=== PATIENT | male | born 1990 | race African-American/Black ===

== ENCOUNTER 2017-11-17 01:29 | Inpatient (IN) | payer OTHER ==
[2017-11-17] VITALS (22 sets, daily range): BP systolic 100–123; BP diastolic 61–74; PULSE 85–115; RESP 11–164; TEMP 96.3–98.4; O2SAT 97–100
[~2017-11-17] VITALS: Ht 170.2 cm; Wt 69.7 kg
--- NOTE | 2017-11-17 01:53 | PD ---
HPI Chief Complaint: Bite or Sting Time Seen by Provider: 01:39 Travel History International Travel<30 days: No Contact w/Intl Traveler<30days: No Traveled to known affect area: No History of Present Illness HPI 27-year-old black male presents in police custody for medical clearance to go to shelter. Patient was apprehended by police canine. Patient states that he has not had a tetanus shot in over 5 years. Pain is mild to moderate. Patient sustained a bite to the left forearm. No other injuries. She denies any injury to his head, neck or back. No chest or abdominal pain. He denies any numbness or tingling. PFSH Past Medical History Medical History: Denies Significant Hx Diminished Hearing: No Immunizations Current: No Tetanus Vaccination: > 5 Years Past Surgical History Surgical History: No Previous Surgery Social History Alcohol Use: Yes Tobacco Use: Yes Substance Use: No (PT DENIES ) Allergies-Medications (Allergen,Severity, Reaction): Coded Allergies: No Known Allergies (Unverified , 11/17/17) Reported Meds & Prescriptions Reported Meds & Active Scripts Active Ibuprofen 600 Mg Tab 600 Mg PO Q6H PRN Augmentin (Amoxicillin-Clavulanate) 875-125 Mg Tab 1 Tab PO BID 10 Days Review of Systems General / Constitutional: No: Fever Eyes: No: Visual changes HENT: No: Headaches, Neck Stiffness, Neck Pain Cardiovascular: No: Chest Pain or Discomfort Respiratory: No: Shortness of Breath Gastrointestinal: No: Abdominal Pain Genitourinary: No: Dysuria Musculoskeletal: Positive: Myalgias, Arthralgias, Limited ROM, Edema, Pain, No : Weakness Skin: No Rash Neurologic: No: Weakness Endocrine: No: Polydipsia Physical Exam Narrative GENERAL: Well-developed, well-nourished in no apparent distress. Nontoxic appearing. HEAD: Normocephalic, atraumatic. EYES: Pupils equal round and reactive. Extraocular motions intact. No scleral icterus. No injection or drainage. ENT: Nose clear. Throat without erythema, tonsillar hypertrophy or exudate. Uvula midline. Airway patent. NECK: Trachea midline. Supple, nontender, moves head freely. No central bony tenderness or spasm. CARDIOVASCULAR: Regular rate and rhythm without murmurs, gallops, or rubs. RESPIRATORY: Clear to auscultation. Breath sounds equal bilaterally. No wheezes , rales, or rhonchi. GASTROINTESTINAL: Abdomen soft, non-tender, nondistended. No hepato-splenomegaly , or palpable masses. No guarding. EXTREMITIES: Examination of the left upper extremity reveals multiple tooth punctures and a bite pattern to the proximal volar and dorsal forearm. There are no suturable lacerations. Patient does have surrounding edema and tenderness to the area of the bite. These do not appear to go into any deep vascular structures. They do not appear to involve any joint or bone. There is no pain in the humerus, elbow, wrist, hand. He has intact median/ulnar/ radial nerves. Patient has no localizing bony tenderness or deformity to the right upper extremity as well as the lower extremities. There are neurovascularly intact. BACK: Nontender without deformity. No flank tenderness. NEUROLOGICAL: Awake, alert and oriented x 3 .Cranial nerves grossly intact. Motor and sensory grossly within normal limits. Normal speech. Data Data Last Documented VS Vital Signs Date Time Temp Pulse Resp B/P (MAP) Pulse Ox O2 Delivery O2 Flow Rate FiO2 11/17/17 01:36 97.8 108 16 123/71 (88) 98 Orders Orders Forearm (2vws) (11/17/17 01:47) Ice/Cold Pack (11/17/17 01:47) Ibuprofen (Motrin) (11/17/17 02:00) Amoxicil-Clavulanate (Augmentin) (11/17/17 02:00) Tetanus/Diphtheria Tox Adult (Tetanus/Di (11/17/17 02:00) Electrocardiogram (11/17/17 02:26) Complete Blood Count With Diff (11/17/17 02:26) Comprehensive Metabolic Panel (11/17/17 02:26) Cath For Specimen (11/17/17 02:26) Chest, Single Ap (11/17/17 02:26) Iv Access Insert/Monitor (11/17/17 02:26) Ecg Monitoring (11/17/17 02:26) Drug Screen, Random Urine (11/17/17 02:26) Alcohol (Ethanol) (11/17/17 02:26) Salicylates (Aspirin) (11/17/17 02:26) Tylenol (Acetaminophen) (11/17/17 02:26) Ct Brain W/O Iv Contrast(Rout) (11/17/17 02:38) [facility] Medical Decision Making Medical Screen Exam Complete: Yes Emergency Medical Condition: Yes Medical Record Reviewed: Yes Interpretation(s) Left forearm: Negative for fracture. No foreign body. Positive soft tissue swelling. Differential Diagnosis MDM: High Differential diagnoses: Fracture, sprain, strain, dislocation, contusion, neurovascular injury, dog bite Narrative Course Patient is given tetanus immunization, Motrin 600 mg p.o., Augmentin 875 mg p.o. X-ray of the left forearm is negative for acute bony injury. Patient's wound is copiously cleansed and irrigated in a sterile dressings applied by the nursing staff. The patient's been medically cleared to go to shelter. This is dog bite left forearm, medical clearance to go to shelter. As the patient was getting ready to be discharged to PD he allegedly had a possible seizure. The patient allegedly became stiff and unresponsive. I have evaluated the patient. He does respond to noxious stimuli. It is unclear whether this is a true seizure that he may have had or a pseudoseizure. The officers that are with the patient are concerned that the patient is not going to be accepted by the shelter. I also concur. We will do more of an evaluation including CBC, chemistry, tox screen and monitoring. The patient is transferred to the medical pod echo 55 for further evaluation and treatment by the ER physician. Report has been given to Dr Holcomb Diagnosis Primary Impression: Dog bite left forearm Patient Instructions: General Instructions Med/Other Pt SpecificInfo: Prescription(s) given Scripts Ibuprofen (Ibuprofen) 600 Mg Tab 600 MG PO Q6H Y for Pain/Inflammation, #40 TAB 0 Refills Prov: Mckenna Dempsey MD 11/17/17 Amoxicillin-Clavulanate (Augmentin) 875-125 Mg Tab 1 TAB PO BID for Infection for 10 Days, #20 TAB 0 Refills Prov: Mckenna Dempsey MD 11/17/17 Condition: Stable Shawn Goff Nov 17, 2017 01:53
[2017-11-17] MEDS ORDERED: AUGM875T3 PO (01:54)
[2017-11-17] MEDS ORDERED: IBUP-232 PO (01:54)
[2017-11-17] MEDS ORDERED: AMOXICILLIN/CLAVULANATE K 875 MG TAB PO ONE (02:00)
[2017-11-17] MEDS ORDERED: IBUPROFEN 600 MG TAB PO ONE (02:00)
[2017-11-17] MEDS ORDERED: TETANUS/DIPHTHERIA TOXOID ADULT 0.5 ML VIAL IM ONE (02:00)
--- NOTE | 2017-11-17 02:41 | RADRPT ---
EXAM DATE: 11/17/2017 2:10 AM EDT AGE/SEX: 27 years / Male INDICATIONS: Dog bite to proximal left forearm today CLINICAL DATA: This is the patient's initial encounter. Patient reports that signs and symptoms have been present for 1 day and indicates a pain score of 9/10. MEDICAL/SURGICAL HISTORY: None. None. COMPARISON: No prior [place] exams available for comparison. FINDINGS: There is air seen in the soft tissues around the elbow. There is soft tissue swelling. No radiopaque foreign bodies seen. The bony structures are intact. CONCLUSION: Soft tissue swelling with air in the soft tissues around the elbow and proximal forearm. Electronically signed by: Rodney Tobar MD 11/17/2017 2:39 AM EDT
[2017-11-17] MEDS ORDERED: LORazepam 2 MG/ML VIAL IV PUSH ONE (03:00)
--- NOTE | 2017-11-17 03:09 | RADRPT ---
EXAM DATE: 11/17/2017 2:50 AM EDT AGE/SEX: 27 years / Male INDICATIONS: Trauma due to police ricardo & police canine attack. Medical clearance. CLINICAL DATA: This is the patient's initial encounter. Patient reports that signs and symptoms have been present for 1 day and indicates a pain score of Nonresponsive. MEDICAL/SURGICAL HISTORY: Non-responsive. Non-responsive. COMPARISON: No prior [place] exams available for comparison. FINDINGS: There is dislocation at the left shoulder with the humeral head being displaced anteriorly and medial ly. The heart size is normal. The lungs are clear. CONCLUSION: Left glenohumeral dislocation. Electronically signed by: Rodney Tobar MD 11/17/2017 3:07 AM EDT
[2017-11-17 03:13] LABS: AUTOMATED NEUTROPHIL # 7.7 TH/MM3 (1.8-7.7); BASOPHIL % 0.4 % (0.0-2.0); EOSINOPHIL # 0.1 TH/MM3 (0-0.4); EOSINOPHIL % 0.7 % (0.0-4.0); HEMATOCRIT 45.5 % (39.0-51.0); HEMOGLOBIN 15.4 GM/DL (13.0-17.0); LYMPH % 19.7 % (9.0-44.0); LYMPHOCYTE # 2.2 TH/MM3 (1.0-4.8); MEAN CELL VOLUME 90.8 FL (80.0-100.0); MEAN CORPUSCULAR HEMOGLOBIN 30.8 PG (27.0-34.0); MEAN PLATELET VOLUME 9.4 FL (7.0-11.0); MONO % 10.8 % (0.0-8.0); MONOCYTE # 1.2 TH/MM3 (0-0.9); NEUT % 68.4 % (16.0-70.0); PLATELET COUNT 205 TH/MM3 (150-450); RED BLOOD COUNT 5.01 MIL/MM3 (4.50-5.90); RED CELL DISTRIBUTION WIDTH 13.9 % (11.6-17.2); WHITE BLOOD COUNT 11.3 TH/MM3 (4.0-11.0)
[2017-11-17 03:38] LABS: ALKALINE PHOSPHATASE 87 U/L (45-117); TOTAL BILIRUBIN ADULT 0.4 MG/DL (0.2-1.0); TOTAL PROTEIN 8.6 GM/DL (6.4-8.2)
[2017-11-17 03:39] LABS: ALBUMIN 4.1 GM/DL (3.4-5.0); ALT (GPT) 27 U/L (12-78); AST (GOT) 35 U/L (15-37); BICARBONATE 12.5 MEQ/L (21.0-32.0); BLOOD UREA NITROGEN 11 MG/DL (7-18); CALCIUM 9.1 MG/DL (8.5-10.1); CHLORIDE 102 MEQ/L (98-107); CREATININE 1.28 MG/DL (0.60-1.30); GLOMERULAR FILTRATION RATE 82 ML/MIN (>89); GLUCOSE,RANDOM 67 MG/DL (74-106); SODIUM (NA) 141 MEQ/L (136-145)
[2017-11-17 03:46] LABS: ACETAMINOPHEN LESS THAN 2.0 MCG/ML (10.0-30.0)
--- NOTE | 2017-11-17 04:25 | RADRPT ---
EXAM DATE: 11/17/2017 4:15 AM EDT AGE/SEX: 27 years / Male INDICATIONS: Altered mental status. CLINICAL DATA: This is the patient's initial encounter. Patient reports that signs and symptoms have been present for 1 day and indicates a pain score of 0/10. MEDICAL/SURGICAL HISTORY: . . RADIATION DOSE: 66.34 CTDI (mGy) COMPARISON: No prior [place] exams available for comparison. TECHNIQUE: CT of the head without contrast. Using automated exposure control and adjustment of the mA and/or kV according to patient size, radiation dose was kept as low as reasonably achievable to ob tain optimal diagnostic quality images. FINDINGS: Cerebrum: The ventricles are normal for age. No evidence of midline shift, mass lesion, hemorrhage or acute infarction. No extraaxial fluid collections are seen. Posterior Fossa: The cerebellum and brainstem are intact. The 4th ventricle is midline. The cerebe llopontine angle is unremarkable. Extracranial: The visualized portion of the orbits is intact. Skull: The calvaria is intact. No evidence of skull fracture. CONCLUSION: Negative noncontrast head CT. Electronically signed by: Rodney Tobar MD 11/17/2017 4:24 AM EDT
[2017-11-17] MEDS ORDERED: DEXTROSE 50% IN WATER 50 ML SYRINGE ONE (04:55)
[2017-11-17] MEDS ORDERED: PROMETHAZINE INJ 25 MG/ML VIAL IM ONE (05:00)
[2017-11-17] MEDS ORDERED: DEXTROSE 50% IN WATER 50 ML VIAL(D50) IV PUSH ONE (05:00)
[2017-11-17] MEDS ORDERED: SODIUM CHLORIDE 0.9% FLUSH 10 ML FLUSH IV FLUSH PRN (05:00)
[2017-11-17] MEDS ORDERED: LORazepam 2 MG/ML VIAL IV PUSH PRN (05:00)
[2017-11-17] MEDS ORDERED: PHENYTOIN INJ 1,000 MG in SODIUM CHLORIDE 0.9% INJ 100 ML IV ONE (05:00)
[2017-11-17] MEDS ORDERED: ONDANSETRON ODT 4 MG TAB PO PRN (05:15)
--- NOTE | 2017-11-17 05:28 | PD ---
Physical Exam Date Seen by Provider: Nov 17, 2017 Time Seen by Provider: 16:00 Narrative Patient initially seen by PA, please see PA notes for further details. He apparently was involved in a car ricardo with police department, was stopped and rested, and was bitten by police dog in the left arm, and was evaluated by our PA, but as he was leaving, had what appears to be a seizure episode. He was brought to the medical area of the ER to be evaluated further for seizure, had a second seizure here witnessed by me. He did not have urinary incontinence but had a post ictal period, and was given Ativan in the ER. CT the brain is negative for any signs of acute intracranial injuries. While being observed, he became quite diaphoretic and heart rate was in the 130s, blood sugar was checked and it was 60 and D50 was given in the ER. In addition, an x-ray of the chest shows an incidental left shoulder dislocation. Shoulder was reduced by me in the ER. Patient barely made any movements while I was reducing his shoulder. X-ray shows successful reduction post procedure. Patient was observed to be more disoriented in the ER and at this point, there is suspicion that there is a possibility that the patient may have tried to ingest drugs while he was running away from the PD in order to hide them, and considering the tachycardia and symptoms, plan would be to admit him for closer treatment and observation in the ICU. Case is discussed with Dr. Miguel for admission. GENERAL: Well-developed young -[place] male patient currently in moderate distress, lethargic and disoriented. SKIN: Focused skin assessment warm/dry. HEAD: Atraumatic. Normocephalic. EYES: Pupils equal and round. No scleral icterus. No injection or drainage. ENT: No nasal bleeding or discharge. Mucous membranes pink and moist. NECK: Trachea midline. No JVD. CARDIOVASCULAR: Regular rate and rhythm. No murmur appreciated. RESPIRATORY: No accessory muscle use. Clear to auscultation. Breath sounds equal bilaterally. GASTROINTESTINAL: Abdomen soft, non-tender, nondistended. Hepatic and splenic margins not palpable. MUSCULOSKELETAL: No obvious deformities. No clubbing. No cyanosis. No edema. Left palpable humeral head anterior to the shoulder joint. Decreased range of motion of the left shoulder. NEUROLOGICAL: Lethargic. Not following commands. PSYCHIATRIC: Disoriented; insight and judgment poor. EKG shows sinus tachycardia at a rate 115 bpm with no signs of acute ST elevations or depressions. Laboratory Tests Test 11/17/17 02:50 11/17/17 03:04 White Blood Count 11.3 TH/MM3 (4.0-11.0) Monocytes (%) (Auto) 10.8 % (0.0-8.0) Monocytes # (Auto) 1.2 TH/MM3 (0-0.9) Random Glucose 67 MG/DL (74-106) Total Protein 8.6 GM/DL (6.4-8.2) Carbon Dioxide Level 12.5 MEQ/L (21.0-32.0) Anion Gap 27 MEQ/L (5-15) Estimat Glomerular Filtration Rate 82 ML/MIN (>89) Acetaminophen Level LESS THAN 2.0 MCG/ML Ethyl Alcohol Level 6 MG/DL (0-5) Urine Cannabinoids Screen POS (NEG) Last [address] 11/17/17237 Signed Impressions: CONCLUSION: Negative noncontrast head CT. Chest X-Ray 11/17/17 0226 Signed Impressions: CONCLUSION: Left glenohumeral dislocation. Radius/Ulna X-Ray 11/17/17 0147 Signed Impressions: CONCLUSION: Soft tissue swelling with air in the soft tissues around the elbow and proximal forearm. Data Data Last Documented VS Vital Signs Date Time Temp Pulse Resp B/P (MAP) Pulse Ox O2 Delivery O2 Flow Rate FiO2 11/17/17 04:49 115 16 121/72 (88) 99 Nasal Cannula 2.00 11/17/17 01:36 97.8 Orders Orders Forearm (2vws) (11/17/17 01:47) Ice/Cold Pack (11/17/17 01:47) Ibuprofen (Motrin) (11/17/17 02:00) Amoxicil-Clavulanate (Augmentin) (11/17/17 02:00) Tetanus/Diphtheria Tox Adult (Tetanus/Di (11/17/17 02:00) Electrocardiogram (11/17/17 02:26) Complete Blood Count With Diff (11/17/17 02:26) Comprehensive Metabolic Panel (11/17/17 02:26) Cath For Specimen (11/17/17 02:26) Chest, Single Ap (11/17/17 02:26) Iv Access Insert/Monitor (11/17/17 02:26) Ecg Monitoring (11/17/17 02:26) Drug Screen, Random Urine (11/17/17 02:26) Alcohol (Ethanol) (11/17/17 02:26) Salicylates (Aspirin) (11/17/17 02:26) Tylenol (Acetaminophen) (11/17/17 02:26) Ct Brain W/O Iv Contrast(Rout) (11/17/17 02:38) Lorazepam Inj (Ativan Inj) (11/17/17 03:00) Promethazine Inj (Phenergan Inj) (11/17/17 05:00) Dextrose 50% In [place] (Syr) Inj (D50w (Syr (11/17/17 04:55) Amoxicil-Clavulanate (Augmentin) (11/17/17 06:00) Admit To Inpatient (11/17/17 ) Vital Signs (Adult) Q4H (11/17/17 04:52) Activity Bed Rest (11/17/17 ) Neuro Checks Q4H (11/17/17 04:52) ^ Seizure Precautions (11/17/17 ) Diet Regular Basic (11/17/17 Breakfast) Sodium Chloride 0.9% Flush (Ns Flush) (11/17/17 05:00) Sodium Chloride 0.9% Flush (Ns Flush) (11/17/17 09:00) Lorazepam Inj (Ativan Inj) (11/17/17 05:00) Phenytoin Inj (Dilantin Inj) (11/17/17 05:00) Complete Blood Count With Diff (11/18/17 06:00) Basic Metabolic Panel (Bmp) (11/18/17 06:00) Eeg Study (11/17/17 ) Consult Neurology (11/17/17 ) Inpatient Certification (11/17/17 ) Admit Order (Ed Use Only) (11/17/17 04:51) Dextrose 50% In [place] (Vial) Inj (D50w (Vi (11/17/17 05:00) Ondansetron Odt (Zofran Odt) (11/17/17 05:15) Shoulder, One View (11/17/17 04:51) Labs Laboratory Tests Test 11/17/17 02:50 11/17/17 03:04 White Blood Count 11.3 TH/MM3 Red Blood Count 5.01 MIL/MM3 Hemoglobin 15.4 GM/DL Hematocrit 45.5 % Mean Corpuscular Volume 90.8 FL Mean Corpuscular Hemoglobin 30.8 PG Mean Corpuscular Hemoglobin Concent 34.0 % Red Cell Distribution Width 13.9 % Platelet Count 205 TH/MM3 Mean Platelet Volume 9.4 FL Neutrophils (%) (Auto) 68.4 % Lymphocytes (%) (Auto) 19.7 % Monocytes (%) (Auto) 10.8 % Eosinophils (%) (Auto) 0.7 % Basophils (%) (Auto) 0.4 % Neutrophils # (Auto) 7.7 TH/MM3 Lymphocytes # (Auto) 2.2 TH/MM3 Monocytes # (Auto) 1.2 TH/MM3 Eosinophils # (Auto) 0.1 TH/MM3 Basophils # (Auto) 0.0 TH/MM3 CBC Comment DIFF FINAL Differential Comment Blood Urea Nitrogen 11 MG/DL Creatinine 1.28 MG/DL Random Glucose 67 MG/DL Total Protein 8.6 GM/DL Albumin 4.1 GM/DL Calcium Level 9.1 MG/DL Alkaline Phosphatase 87 U/L Aspartate Amino Transf (AST/SGOT) 35 U/L Alanine Aminotransferase (ALT/SGPT) 27 U/L Total Bilirubin 0.4 MG/DL Sodium Level 141 MEQ/L Potassium Level 3.9 MEQ/L Chloride Level 102 MEQ/L Carbon Dioxide Level 12.5 MEQ/L Anion Gap 27 MEQ/L Estimat Glomerular Filtration Rate 82 ML/MIN Salicylates Level 5.2 MG/DL Acetaminophen Level LESS THAN 2.0 MCG/ML Ethyl Alcohol Level 6 MG/DL Urine Opiates Screen NEG Urine Barbiturates Screen NEG Urine Amphetamines Screen NEG Urine Benzodiazepines Screen NEG Urine Cocaine Screen NEG Urine Cannabinoids Screen POS MDM Medical Record Reviewed: Yes Supervised Visit with LEXUS: Yes Critical Care Narrative Aggregate critical care time was 30 minutes. Time to perform other separately billable procedures was not included in the critical care time. My time did not include minutes spent treating any other patients simultaneously or on activities that did not directly contribute to the patient's treatment. The services I provided to this patient were to treat and/or prevent clinically significant deterioration that could result in: ICH, status epilepticus, I provided critical care services requiring my management, as noted below: Chart data review, documentation time, medication orders and management, vital sign assessments/reviewing monitor data, ordering and reviewing lab tests, ordering and interpreting/reviewing x-rays and diagnostic studies, care of the patient and discussion of the patient with the admitting physicians. Procedures Procedure Narrative Left shoulder reduction: Left shoulder was reduced using the scapular manipulation and exterior rotation method. It went in easily without issues. X -ray shows reduction. Diagnosis Primary Impression: Dog bite left forearm Additional Impressions: Dislocation of left shoulder joint New onset seizure Hypoglycemia Patient Instructions: General Instructions Departure Forms: Tests/Procedures Scripts Ibuprofen (Ibuprofen) 600 Mg Tab 600 MG PO Q6H Y for Pain/Inflammation, #40 TAB 0 Refills Prov: Mckenna Dempsey MD 11/17/17 Amoxicillin-Clavulanate (Augmentin) 875-125 Mg Tab 1 TAB PO BID for Infection for 10 Days, #20 TAB 0 Refills Prov: Mckenna Dempsey MD 11/17/17 Bhavani Acosta MD Nov 17, 2017 05:28
--- NOTE | 2017-11-17 05:42 | HHI.HP ---
HPI Service Critical Care Medicine Primary Care Physician No Primary Care Physician Admission Diagnosis New onset seizures/left shoulder dislocation Diagnosis: Travel History International Travel<30 Days: No Contact w/Intl Traveler <30 Da: No Traveled to Known Affected Are: No History of Present Illness 27-year-old male presents in police custody for medical clearance to go to residential. Patient was apprehended by police canine. Patient states that he has not had a tetanus shot in over 5 years. Pain is mild to moderate. Patient sustained a bite to the left forearm. No other injuries. In the emergency department he denied any injury to his head, neck or back. No chest or abdominal pain. While in the ED he suffered episode that looked like a seizure , after which he remains obtunded. Review of Systems ROS Unable to obtain patient's obtunded Past Family Social History Allergies: Coded Allergies: No Known Allergies (Unverified , 11/17/17) Past Medical History Unobtainable Past Surgical History Unobtainable Reported Medications Reported Meds & Active Scripts Active Ibuprofen 600 Mg Tab 600 Mg PO Q6H PRN Augmentin (Amoxicillin-Clavulanate) 875-125 Mg Tab 1 Tab PO BID 10 Days Active Ordered Medications Current Medications Medications (Trade) Dose Ordered Sig/Reggie Route PRN Reason Start Time Stop Time Status Last Admin Dose Admin Amoxicillin/ Clavulanate Potassium (Augmentin) 250 mg Q8HR PO 11/17/17 06:00 Sodium Chloride (NS Flush) 2 ml UNSCH PRN IV FLUSH FLUSH AFTER USING IV ACCESS 11/17/17 05:00 Sodium Chloride (NS Flush) 2 ml BID IV FLUSH 11/17/17 09:00 Lorazepam (Ativan Inj) 2 mg UNSCH PRN IV PUSH SEE LABEL COMMENTS 11/17/17 05:00 Ondansetron HCl (Zofran Odt) 4 mg Q6H PRN PO NAUSEA OR VOMITING 11/17/17 05:15 Levetriacetam 100 ml @ 400 mls/hr BOLUS ONCE IV 11/17/17 05:45 11/17/17 05:59 Family History Unobtainable Social History Unobtainable, drug screen positive only for marijuana Physical Exam Vital Signs Vital Signs Date Time Temp Pulse Resp B/P (MAP) Pulse Ox O2 Delivery O2 Flow Rate FiO2 11/17/17 04:49 115 16 121/72 (88) 99 Nasal Cannula 2.00 11/17/17 01:36 97.8 108 16 123/71 (88) 98 Physical Exam GENERAL: Well-nourished, well-developed patient. SKIN: Warm and dry. HEAD: Normocephalic. EYES: No scleral icterus. No injection or drainage. Obtunded, lethargic NECK: Supple, trachea midline. No JVD or lymphadenopathy. CARDIOVASCULAR: Regular rate and rhythm without murmurs, gallops, or rubs. RESPIRATORY: Breath sounds equal bilaterally. No accessory muscle use. GASTROINTESTINAL: Abdomen soft, non-tender, nondistended. MUSCULOSKELETAL: No cyanosis, or edema. BACK: Nontender without obvious deformity. NEURO EXAM: GCS: 8 Mental Status: The patient is extremely obtunded, not following commands, spontaneously moving all 4 extremities. Laboratory Laboratory Tests Test 11/17/17 02:50 11/17/17 03:04 White Blood Count 11.3 Red Blood Count 5.01 Hemoglobin 15.4 Hematocrit 45.5 Mean Corpuscular Volume 90.8 Mean Corpuscular Hemoglobin 30.8 Mean Corpuscular Hemoglobin Concent 34.0 Red Cell Distribution Width 13.9 Platelet Count 205 Mean Platelet Volume 9.4 Neutrophils (%) (Auto) 68.4 Lymphocytes (%) (Auto) 19.7 Monocytes (%) (Auto) 10.8 Eosinophils (%) (Auto) 0.7 Basophils (%) (Auto) 0.4 Neutrophils # (Auto) 7.7 Lymphocytes # (Auto) 2.2 Monocytes # (Auto) 1.2 Eosinophils # (Auto) 0.1 Basophils # (Auto) 0.0 CBC Comment DIFF FINAL Differential Comment Blood Urea Nitrogen 11 Creatinine 1.28 Random Glucose 67 Total Protein 8.6 Albumin 4.1 Calcium Level 9.1 Alkaline Phosphatase 87 Aspartate Amino Transf (AST/SGOT) 35 Alanine Aminotransferase (ALT/SGPT) 27 Total Bilirubin 0.4 Sodium Level 141 Potassium Level 3.9 Chloride Level 102 Carbon Dioxide Level 12.5 Anion Gap 27 Estimat Glomerular Filtration Rate 82 Salicylates Level 5.2 Acetaminophen Level LESS THAN 2.0 Ethyl Alcohol Level 6 Urine Opiates Screen NEG Urine Barbiturates Screen NEG Urine Amphetamines Screen NEG Urine Benzodiazepines Screen NEG Urine Cocaine Screen NEG Urine Cannabinoids Screen POS Result Diagram: 11/17/17 0250 11/17/17 0250 Imaging Last [address] 11/17/17 0238 Signed Impressions: CONCLUSION: Negative noncontrast head CT. Chest X-Ray 11/17/17 0226 Signed Impressions: CONCLUSION: Left glenohumeral dislocation. Radius/Ulna X-Ray 11/17/17 0147 Signed Impressions: CONCLUSION: Soft tissue swelling with air in the soft tissues around the elbow and proximal forearm. Caprini VTE Risk Assessment Caprini VTE Risk Assessment: Mod/High Risk (score >= 2) Caprini Risk Assessment Model Point Value = 1 Point Value = 2 Point Value = 3 Point Value = 5 Age 41-60 Minor surgery BMI > 25 kg/m2 Swollen legs Varicose veins or History of unexplained or recurrent spontaneous Oral contraceptives or hormone replacement Sepsis (< 1 month) Serious lung disease, including pneumonia (< 1 month) Abnormal pulmonary function Acute myocardial infarction Congestive heart failure (< 1 month) History of inflammatory bowel disease Medical patient at bed rest Age 61-74 Arthroscopic surgery Major open surgery (> 45 min) Laparoscopic surgery (> 45 min) Malignancy Confined to bed (> 72 hours) Immobilizing plaster cast Central venous access Age >= 75 History of VTE Family history of VTE Factor V Leiden Prothrombin [id number] Lupus anticoagulant Anticardiolipin antibodies Elevated serum homocysteine Heparin-induced thrombocytopenia Other congenital or acquired thrombophilia Stroke (< 1 month) Elective arthroplasty Hip, pelvis, or leg fracture Acute spinal cord injury (< 1 month) Prophylaxis Regimen Total Risk Factor Score Risk Level Prophylaxis Regimen 0-1 Low Early ambulation 2 Moderate Order ONE of the following: *Sequential Compression Device (SCD) *Heparin 5000 units SQ BID 3-4 Higher Order ONE of the following medications: *Heparin 5000 units SQ TID *Enoxaparin/Lovenox 40 mg SQ daily (WT < 150 kg, CrCl > 30 mL/min) *Enoxaparin/Lovenox 30 mg SQ daily (WT < 150 kg, CrCl > 10-29 mL/min) *Enoxaparin/Lovenox 30 mg SQ BID (WT < 150 kg, CrCl > 30 mL/min) AND/OR *Sequential Compression Device (SCD) 5 or more Highest Order ONE of the following medications: *Heparin 5000 units SQ TID (Preferred with Epidurals) *Enoxaparin/Lovenox 40 mg SQ daily (WT < 150 kg, CrCl > 30 mL/min) *Enoxaparin/Lovenox 30 mg SQ daily (WT < 150 kg, CrCl > 10-29 mL/min) *Enoxaparin/Lovenox 30 mg SQ BID (WT < 150 kg, CrCl > 30 mL/min) AND *Sequential Compression Device (SCD) Assessment and Plan Assessment and Plan Altered mental status -Post ictal -Intoxication? -Admit to ICU -Neuro checks per unit protocol -CT head negative -IV fluid hydration -Monitor for any airway protection and possible intubation -EEG Dislocated shoulder -Successfully admitted by ED attending -Arm sling support Canine bite injury -Amoxicillin-clavulanate DVT GI prophylaxis -Sami's and SCDs -Early aggressive mobilization -Regular diet when more Critical Care: The total critical care time was 35 minutes. Time to perform other separately billable procedures was not included in the critical care time. Kwesi Miguel MD Nov 17, 2017 05:42
[2017-11-17] MEDS ORDERED: levETIRAcetam INJ 100 ML IV ONE (05:45)
[2017-11-17] MEDS ORDERED: NALOXONE HCL 0.4 MG/ML AMP IV PUSH ONE (05:45)
--- NOTE | 2017-11-17 05:48 | RADRPT ---
EXAM DATE: 11/17/2017 5:18 AM EDT AGE/SEX: 27 years / Male INDICATIONS: Post reduction left shoulder dislocation CLINICAL DATA: This is the patient's initial encounter. Patient reports that signs and symptoms have been present for 1 day and indicates a pain score of Nonresponsive. MEDICAL/SURGICAL HISTORY: None. None. COMPARISON: [facility] [place], [place]ST [place]ING[place] AP, 11/17/2017. . FINDINGS: There is been successful reduction of the left glenohumeral joint with the left humeral head being no rmal in position. CONCLUSION: Successful reduction of the previous seen left glenohumeral dislocation. Electronically signed by: Rodney Tobar MD 11/17/2017 5:47 AM EDT
[2017-11-17] MEDS ORDERED: POTASSIUM CHLOR 40 MEQ PREMIX 100 ML IV PRN ×2 (06:00)
[2017-11-17] MEDS ORDERED: DEXTROSE 50% IN WATER 50 ML VIAL(D50) IV PUSH PRN (06:00)
[2017-11-17] MEDS ORDERED: GLUCAGON 1 MG/ML VIAL OTHER PRN ×2 (06:00→08:30)
[2017-11-17] MEDS: AMOXICILLIN/CLAVULANATE K 250 MG TAB PO SCH ×3 (06:00→22:24)
[2017-11-17] MEDS ORDERED: POTASSIUM CHLORIDE 25 MEQ EFFERVESCENT TAB PO PRN (06:00)
[2017-11-17] MEDS ORDERED: POTASSIUM CHLOR 20 MEQ PREMIX 100 ML IV PRN ×2 (06:00)
[2017-11-17] MEDS ORDERED: MAGNESIUM OXIDE 400 MG TAB PO PRN (06:00)
[2017-11-17] MEDS ORDERED: MAGNESIUM SULFATE INJ 2 GM in SODIUM CHLORIDE 0.9% INJ 96 ML IV PRN (06:00)
[2017-11-17] MEDS ORDERED: MAGNESIUM SULFATE INJ 4 GM in SODIUM CHLORIDE 0.9% INJ 92 ML IV PRN (06:00)
[2017-11-17] MEDS ORDERED: POTASSIUM PHOSPHATE INJ 30 MMOL in SODIUM CHLOR 0.9% 250 ML INJ 250 ML IV PRN (06:00)
[2017-11-17] MEDS ORDERED: POTASSIUM PHOSPHATE MONOBASIC 500 MG TAB PO/TUBE PRN (06:00)
[2017-11-17] MEDS ORDERED: POTASSIUM PHOSPHATE MONOBASIC 500 MG TAB PO PRN (06:00)
[2017-11-17] MEDS ORDERED: SODIUM PHOSPHATE INJ 30 MMOL in SODIUM CHLOR 0.9% 250 ML INJ 240 ML IV PRN (06:00)
[2017-11-17] MEDS: SODIUM CHLOR 0.9% 1000 ML INJ 1,000 ML IV SCH ×3 (06:33→20:42)
[2017-11-17] MEDS ORDERED: PROPOFOL 500 MG/50 ML INJ 50 ML ONE (07:14)
[2017-11-17] MEDS ORDERED: ROCURONIUM INJ 50 MG/5 ML VIAL IV SCH (07:15)
[2017-11-17] MEDS ORDERED: PROPOFOL 1000 MG/100 ML INJ 100 ML IV PRN (07:15)
[2017-11-17] MEDS ORDERED: fentaNYL CITRATE 250 MCG/5 ML AMP IV PUSH SCH (07:15)
[2017-11-17] MEDS ORDERED: SUCCINYLCHOLINE CHLORIDE 200 MG/10 ML VIAL ONE (07:17)
[2017-11-17] MEDS ORDERED: SUCCINYLCHOLINE CHLORIDE 200 MG/10 ML VIAL IV PUSH SCH (07:30)
[2017-11-17] MEDS ORDERED: PROPOFOL 500 MG/50 ML BTL IV SCH (07:30)
--- NOTE | 2017-11-17 07:51 | PD.PROCEDR ---
Procedure Note Procedure Endotracheal Intubation Diagnosis: Altered mental status Indications: Altered mental status Consent: Emergent Anesthesia: see MAR Description of the Procedure: The patient was positioned in the sniffing position. Pre-oxygenation was performed using a 100% BVM. Anesthesia was induced via rapid sequence. A Glidescope 4 was used for laryngoscopy and a Grade 1 view was obtained. A 8.0 cuffed endotracheal tube was inserted atraumatically through the vocal cords. Confirmation of correct endotracheal tube placement was made by equal and bilateral breath sounds and colorimetric CO2 detection. The endotracheal tube was secured at [ ] cm at the teeth. There were no immediate complications noted. The patient remained hemodynamically stable throughout the procedure. A chest x-ray has been ordered. I personally performed the procedure. Madeleine Grant MD Nov 17, 2017 07:51
--- NOTE | 2017-11-17 07:54 | PD.PROCEDR ---
Procedure Note Procedure Procedure: Arterial Line Placement Right radial artery Diagnosis: Altered mental status Indications: Altered mental status Consent: Emergent Description of the Procedure: The right rate was prepped and draped sterilely. 1 % lidocaine was used for local anesthesia. The pulse was located and a needle was advanced into the artery. A 20 gauge, 1.34 cm catheter was advanced into the artery using a modified Seldinger technique. The catheter was sutured to the skin and a sterile dressing was applied. The catheter was connected to a pressure transducer and an arterial waveform was noted. There were no immediate complications noted. There was minimal EBL. I personally performed the procedure. Madeleine Grant MD Nov 17, 2017 07:54
--- NOTE | 2017-11-17 08:21 | HHI.CCPN ---
Subjective Remarks/Hospital Course 27-year-old male presents in police custody for medical clearance to go to residential. Patient was apprehended by police canine. Patient states that he has not had a tetanus shot in over 5 years. Pain is mild to moderate. Patient sustained a bite to the left forearm. No other injuries. In the emergency department he denied any injury to his head, neck or back. No chest or abdominal pain. While in the ED he suffered episode that looked like a seizure , after which he remains obtunded. Subjective: 11/17: 0715 received in [facility] [place] patient completely obtunded , nonresponsive unable to protect airway,possible postictal state. Pupils 3 mm, sluggishly reactive. Patient received 2 mg of Ativan at 4:30 AM, and Narcan 0.4 mg at 630 am in the ED. In the ED the patient was noted to be having seizures upon admission and received 1 g of Dilantin, and Keppra. Glucose was noted to be 64 and had received D50 in the ED, point of care testing, glucose pending. Objective Vital Signs Date Time Temp Pulse Resp B/P (MAP) Pulse Ox O2 Delivery O2 Flow Rate FiO2 11/17/17 07:00 98.4 105 11 112/69 (83) 97 11/17/17 06:31 Nasal Cannula 3.00 Intake and Output 11/17/17 11/17/17 11/18/17 08:00 16:00 00:00 Intake Total 220 ml Balance 220 ml Result Diagram: 11/17/17 0250 11/17/17 0250 Imaging Last [address] 11/17/17 0238 Signed Impressions: CONCLUSION: Negative noncontrast head CT. Chest X-Ray 11/17/17 0226 Signed Impressions: CONCLUSION: Left glenohumeral dislocation. Radius/Ulna X-Ray 11/17/17 0147 Signed Impressions: CONCLUSION: Soft tissue swelling with air in the soft tissues around the elbow and proximal forearm. Objective Remarks GENERAL: This is a well-developed well-nourished 27-year-old -German male completely obtunded SKIN: Warm and dry. HEAD: Normocephalic. EYES: No scleral icterus. 3 mm sluggishly reactive no injection or drainage. Obtunded, lethargic NECK: Supple, trachea midline. No JVD or lymphadenopathy. CARDIOVASCULAR: Regular rate and rhythm without murmurs, gallops, or rubs. RESPIRATORY: Breath sounds equal bilaterally. No accessory muscle use. Clear to auscultation GASTROINTESTINAL: Abdomen soft, non-tender, nondistended. Bowel sounds active MUSCULOSKELETAL: No cyanosis, or edema. Left arm glenohumeral dislocation currently in sling BACK: Nontender without obvious deformity. NEURO EXAM: GCS: E1V1 M6 GCS 8T Mental Status: The patient is extremely obtunded, not following commands, spontaneously moving all 4 extremities. A/P Assessment and Plan Plan by systems: Neurologic: Toxic /metabolic encephalopathy Seizure disorder Substance abuse disorder Neuro checks per ICU protocol Propofol infusion to maintain ventilator synchrony 6/2-in ED, patient with seizure activity loaded with Keppra and Dilantin. Patient received Narcan x1 dose, as well as Motrin 1 day (MRA pending) U tox positive for cannaboids and Alcohol level 6 11/17 CT brain-negative GCS 8T daily sedation vacation Obtain EEG Obtain MRI /MRA brain Obtain MRA carotid Obtain ammonia level Obtain cortisol level Consult neurology Respiratory: Acute hypercapnic respiratory insufficiency /2 -intubated 8.0 ETT at 24 - patient on able to protect airway. Maintain O2 saturation greater than 92% Arterial line placement-obtain ABG post intubation Ventilator bundle Duo nebs every 6 hours scheduled every 2 hours as needed Begin daily CPAP trials Cardiovascular: Hypotension Maintain MAP greater than 65 mmHG Telemetry sinus rhythm Renal: Condom catheter. No Marques indicated at this time -- Strict I/Os FEN/GI: Obtain BMP Insert OGT to LIWS Maintain n.p.o. status for now We will obtain dietary consult Bowel regimen Zofran for nausea Heme/ID: Monitor CBC 6/2 in ED patient received tetanus toxoid Endocrine: Hypoglycemia 6/2 in the ED the patient received 2 A of D50 [id number] testing Glucose monitoring per ICU protocol -- SSI MSK: Dislocated left glenohumeral joint Canine bite injury Patient placed in sling, maintain elevation Consult Orthopedics Continue -Amoxicillin-clavulanate Consult hand surgery-Dr. Joy Marcano Prophylaxis: GI Prophylaxis Famotidine DVT Prophylaxis -- SCDs Await MRAs/MRI institute DVT prophylaxis Lines: Peripheral IVs 2. Right radial A-line. Central line if indicated Dispo: my billing statement This patient remains critically ill with one or more organ systems which are or may become a threat to life. I have spent in excess of 35 minutes discontinuously in the care and management of this patient. This time is exclusive of procedures, and includes, but is not limited to, evaluation of the patient, review of the medical record, discussions with family, consultants, nursing staff, or respiratory therapy, and documentation in the medical record. Physician Madeleine Youngblood MD Nov 17, 2017 08:21
[2017-11-17] MEDS ORDERED: LACTULOSE SYRUP 20 GM/30 ML CUP PO PRN (08:30)
[2017-11-17] MEDS ORDERED: RESP: ALBUTEROL 2.5 MG/IPRATROPIUM 0.5 MG NEB (PRN) INH (08:30)
[2017-11-17] MEDS ORDERED: BISACODYL 10 MG SUPP RECTAL PRN (08:30)
[2017-11-17] MEDS ORDERED: MAGNESIUM HYDROXIDE SUSP 30 ML CUP PO PRN (08:30)
[2017-11-17] MEDS ORDERED: SENNOSIDES 8.6 MG TAB PO PRN (08:30)
[2017-11-17] MEDS ORDERED: GADODIAMIDE PF 287 MG/ML 20 ML VIAL (for RAD MRI) IVCONTRAST ONE (09:30)
--- NOTE | 2017-11-17 09:44 | RADRPT ---
EXAM DATE: 11/17/2017 9:32 AM EDT AGE/SEX: 27 years / Male INDICATIONS: Altered mental status. CLINICAL DATA: This is the patient's initial encounter. Patient reports that signs and symptoms have been present for 1 day and indicates a pain score of 0/10. MEDICAL/SURGICAL HISTORY: Non-responsive. Non-responsive. COMPARISON: No prior [facility] exams available for comparison. TECHNIQUE: Multiplanar, multisequence examination of the brain was performed without contrast. FINDINGS: Cerebrum: The ventricles are normal for age. No evidence of midline shift, mass lesion, hemorrhage or acute infarction. No extraaxial fluid collections are seen. The pituitary gland and suprasellar cistern are normal in configuration. White Matter: No significant signal abnormalities are seen in the white matter. Posterior Fossa: The cerebellum and brainstem are intact. The 4th ventricle is midline. The cerebel lopontine angle is unremarkable. The cerebellar tonsils are normal in position. Diffusion Imaging: No focal areas of restricted diffusion are seen. No evidence of acute infarction . Extracranial: The visualized portions of the orbits demonstrate disconjugate gaze. The Paranasal sin uses are unremarkable. CONCLUSION: 1. The orbits demonstrate disconjugate gaze. The exam is otherwise unremarkable. Electronically signed by: Marah Javier MD 11/17/2017 9:43 AM EDT
--- NOTE | 2017-11-17 09:55 | RADRPT ---
EXAM DATE: 11/17/2017 9:46 AM EDT AGE/SEX: 27 years / Male INDICATIONS: Post intubation. CLINICAL DATA: This is the patient's initial encounter. Patient reports that signs and symptoms have been present for 1 day and indicates a pain score of Nonresponsive. MEDICAL/SURGICAL HISTORY: Non-responsive. Non-responsive. [place] [facility] [place] . FINDINGS: AP supine portable view of the chest and demonstrates and endotracheal tube with the tip at the level of the clavicles. Nasogastric tube being with the proximal port overlying the stomach. The lungs are well-inflated and clear. Heart size is normal. Osseous structures are intact. CONCLUSION: Lines and tubes which appear to be appropriate in position. Lungs are clear. Electronically signed by: Marah Javier MD 11/17/2017 9:54 AM EDT
[2017-11-17] MEDS: RESP: ALBUTEROL 2.5 MG/IPRATROPIUM 0.5 MG NEB (SCH) INH ×3 (10:00→21:23)
--- NOTE | 2017-11-17 10:24 | RADRPT ---
EXAM DATE: 11/17/2017 10:00 AM EDT AGE/SEX: 27 years / Male INDICATIONS: Altered mental status. CLINICAL DATA: This is the patient's initial encounter. Patient reports that signs and symptoms have been present for 1 day and indicates a pain score of 0/10. MEDICAL/SURGICAL HISTORY: Non-responsive. Non-responsive. COMPARISON: [facility] [place]/17/2017. . TECHNIQUE: 20cc ml Omniscan (gadodiamide) contrast infused MRA (single exam dose) of the extracrani al circulation was performed using a neurovascular coil. Postprocessing was performed, including rot ating sub-volume maximum intensity projections of each carotid artery, rotating full-volume maximum i ntensity projections of both carotid arteries, sagittal and coronal sliding thin-slab reformations of each carotid artery, and left oblique sliding thin-slab reformation through the aortic arch to inclu de the origin of the arch branch vessels. FINDINGS: Aortic Arch : There is a three-vessel origin of the great vessels from the aorta. No evidence of o stial narrowing. Right Carotid : The common carotid artery is intact. The carotid bulb has a normal configuration wi thout ulceration or narrowing. The internal carotid artery lumen is smooth without stenosis. The ex ternal carotid artery is intact. Left Carotid : The common carotid artery is intact. The carotid bulb has a normal configuration wit hout ulceration or narrowing. The internal carotid artery lumen is smooth without stenosis. The ext ernal carotid artery is intact. Vertebrals : The vertebral arteries have a symmetric diameter. No stenotic lesions are seen. CONCLUSION: 1. Normal exam Percent stenosis is calculated using the diameter of the stenotic region over the diameter of the nor mal distal internal carotid artery Electronically signed by: Marah Javier MD 11/17/2017 10:22 AM EDT
--- NOTE | 2017-11-17 10:25 | RADRPT ---
EXAM DATE: 11/17/2017 9:14 AM EDT AGE/SEX: 27 years / Male INDICATIONS: Altered mental status. CLINICAL DATA: This is the patient's initial encounter. Patient reports that signs and symptoms have been present for 1 day and indicates a pain score of 0/10. MEDICAL/SURGICAL HISTORY: Non-responsive. Non-responsive. COMPARISON: No prior [facility] exams available for comparison. TECHNIQUE: 3D [id number] MRA was performed. Source images, multiplanar STS MIP, and 3D volum e MIP reconstructions were reviewed. FINDINGS: There is excellent visualization of the major intracranial arteries out to the second-order branch ve ssels. There is no evidence for aneurysm, vessel truncation or stenosis, and no evidence for vascula r malformation. CONCLUSION: 1. Normal exam Electronically signed by: Marah Javier MD 11/17/2017 10:24 AM EDT
[2017-11-17] MEDS ORDERED: fentaNYL CITRATE 250 MCG/5 ML AMP IV PUSH PRN (11:00)
[2017-11-17 11:40] LABS: BICARBONATE 21.6 MEQ/L (21.0-32.0); CALCIUM 7.9 MG/DL (8.5-10.1); CREATININE 0.83 MG/DL (0.60-1.30)
[2017-11-17] MEDS: DOCUSATE SODIUM 50 MG/SENNA 8.6 MG TAB PO SCH ×2 (11:42→20:25)
[2017-11-17] MEDS: PROPOFOL 1000 MG/100 ML INJ 100 ML IV PRN ×2 (11:44→18:05)
[2017-11-17] MEDS: INSULIN ASPART SUPPLEMENTAL SCALE SQ SCH ×3 (12:00→20:00)
[2017-11-17] MEDS: SODIUM CHLORIDE 0.9% FLUSH 10 ML FLUSH IV FLUSH SCH ×2 (12:01→20:25)
--- NOTE | 2017-11-17 12:45 | MG ---
cc: Tiny Irwin MD REFERRING PROVIDER: Dr. Kwesi Miguel. EEG NUMBER: [id number] INDICATION: Intubated, in room 525, Diprivan 30 mcg, 50 mg of rocuronium given for MRI prior to the study, unresponsive, negative CT. MRI actually was negative. A 27-year-old man brought in by police. Canine bit him on the left arm, possible seizure, was given Dilantin and Keppra in the ED. DESCRIPTION OF RECORD: Diprivan 30 mcg is noted; however, there is normal activity seen at times, 5-6 Hz, at times even higher bilaterally. Some minor artifact is noted as well. Epoch 64 looks like there may be some sharp waves seen, but not continuous just 1 portion of the recording at epoch 64. Rest of the recording as it continues between theta and alpha waves at times. Photic stimulation, there may be a mild driving response. IMPRESSION: Abnormal electroencephalogram due to an isolated sharp wave potential on epoch 64. EEG shows artifact, but there is some normal activity interspersed with some slowing can be seen with the patient's sedation and/or medication effect. However, no active seizures noted. Clinical correlation. Tiny Irwin MD DF/TONY , 12:25 PM , 12:44 PM
--- NOTE | 2017-11-17 14:00 | EKG ---
Date Performed: 11/17/2017 Time Performed: 04:43:28 PTAGE: 27 years EKG: SINUS TACHYCARDIA Within normal limits for age NO PREVIOUS TRACING DOCTOR: Neil Mcwilliams Interpretating Date/Time 11/17/2017 14:00:28
--- NOTE | 2017-11-17 14:41 | RADRPT ---
EXAM DATE: 11/17/2017 2:27 PM EDT AGE/SEX: 27 years / Male INDICATIONS: Left elbow pain. CLINICAL DATA: This is the patient's initial encounter. Patient reports that signs and symptoms have been present for 1 day and indicates a pain score of Nonresponsive. MEDICAL/SURGICAL HISTORY: None. None. COMPARISON: No prior [facility] exams available for comparison. FINDINGS: There is fairly generalized soft tissue swelling demonstrated of the left elbow. No radiopaque foreig n bodies seen. No perceptible joint effusion. Bones are intact and normally aligned. CONCLUSION: Nonspecific soft tissue swelling. No bony abnormality or significant joint effusion demonstrated. Electronically signed by: Rodney Avery MD 11/17/2017 2:40 PM EDT
--- NOTE | 2017-11-17 14:49 | MB ---
cc: Tiny Irwin MD DATE: 11/17/2017 REASON FOR CONSULTATION: Possible seizure. HISTORY OF PRESENT ILLNESS: This history was taken from the chart. This is a 27-year-old male in custody by police, apprehended by police canine, apparently sustained a bite left forearm. In the emergency department, he was no known history of head or neck trauma and he may have had a seizure in the ED. He remains obtunded. He has a dislocated shoulder and the wound on his left arm. He is on Diprivan and was given some fentanyl earlier today. He received some Dilantin in the ED and Keppra. EEG was just completed. PAST MEDICAL HISTORY: Unknown. SOCIAL HISTORY: Unknown. DRUG ALLERGIES: Unknown. PHYSICAL EXAMINATION: VITAL SIGNS: Temperature is 98.4, heart rate 105, respiratory rate 11 (this is at 7 o'clock in the morning), blood pressure 112/69, saturating 100% FiO2 of 50%. His ventilator was on 20 when I just examined him and he is not overbreathing it. NEUROLOGIC: He is intubated on a ventilator. His pupils are 4 mm. I am not getting any reactivity. He does have some spontaneous opening of his eyes when I sternal rub him, but no gaze deviation. He does not look at examiner. He does not follow any commands. No withdrawal to pain, just eye opening with sternal rub. Tone decreased. Toes are neutral. Reflexes are blunted. LABORATORY DATA: Reviewed. White count 11.3. Chemistries: CO2 now is 21.6, it was 12.5 earlier this morning. Calcium 7.9. Ammonia level was 21. Albumin 4.1. TSH 0.425. Cortisol random is pending. Tox screen is positive for cannabinoids. Ethanol level was 6. Tylenol level less than 2. Other UDS studies are negative. IMAGING STUDIES: MRI did not show anything acute. [place] of [place] and carotids unremarkable. IMPRESSION: Possible seizure versus substance abuse. PLAN: Recommend continuing current care. We will get an EEG result. Continue him on current medications. At this point, I do not think we need to restart any antiepileptics unless EEG shows some findings or there is a witnessed seizure noted. Continue to monitor and make further recommendations accordingly. MD RAJAT Ziegler , 12:08 PM , 02:48 PM
--- NOTE | 2017-11-17 16:40 | MB ---
cc: DarlingurinderVenkatesh S [facility] DATE: 11/17/2017 CHIEF COMPLAINT: Left shoulder dislocation. HISTORY OF PRESENT ILLNESS: This is a 27-year-old black male who is currently intubated and sedated. The patient was originally brought to the emergency department for medical clearance prior to going [facility] [place] [facility]. The patient was apprehended by a police canine and obtained a canine bite to the left proximal forearm. The patient originally complained of no other injuries. The patient, while in the emergency department, had a possible seizure. The patient allegedly became stiff and unresponsive. The patient ended up being admitted following this. Upon admission, the patient had a chest x-ray which showed a left shoulder dislocation. The shoulder was reduced and post-reduction films were obtained, which showed good reduction of the left shoulder. The undersigned was consulted to evaluate the left upper extremity. REVIEW OF SYSTEMS: Negative except for what is stated in the HPI. PAST MEDICAL HISTORY: I was unable to obtain this information as the patient is currently unresponsive. PAST SURGICAL HISTORY: No previously reported at surgery. I was unable to obtain this information today from the patient as he is unresponsive. SOCIAL HISTORY: Includes use of alcohol, tobacco, and marijuana. ALLERGIES: THE PATIENT HAS NO KNOWN DRUG ALLERGIES. PHYSICAL EXAMINATION: VITAL SIGNS: Temperature 98.4, pulse 105, respirations 16, blood pressure 112/69, pulse oximetry is 97% on ventilator. GENERAL: This is a well-developed, well-nourished male, in no apparent distress. The patient is currently intubated and sedated. HEAD: Atraumatic and normocephalic. EYES: PERRLA. EARS, NOSE, AND THROAT: The patient has no bloody drainage from the nares or the ears. Airway is patent. NECK: Supple and trachea is midline. SKIN: Warm and dry. The patient does have multiple puncture wounds to the left proximal forearm and elbow. There is moderate soft tissue swelling to this area. There is serosanguineous drainage from the puncture wounds. RESPIRATORY: The patient has symmetric chest wall rise and nonlabored breathing. The patient is on a ventilator. CARDIOVASCULAR: The patient has 2+ radial and pedal pulses bilaterally. GASTROINTESTINAL: The patient's abdomen is soft and nondistended. MUSCULOSKELETAL: The patient had passive range of motion of the ankles, knees, and hips with no obvious signs of crepitus. The patient had passive range of motion of the bilateral wrists, elbows and shoulders. I do not appreciate any crepitus to these areas. The patient does have full range of motion passively of the left shoulder. The patient was placed back in his sling after his exam. NEUROLOGIC: The patient is unresponsive as he is intubated and sedated. LABORATORY DATA: Labs taken on shows white blood cell count of 11.3, hemoglobin 15.4, hematocrit 45.5, platelets 205, creatinine is 0.83 and glucose is 85. Toxicology on 11/17/2017 shows the patient is positive for cannabinoids and has a small amount of ethyl alcohol on board. IMAGING STUDIES: X-rays of the left forearm 2 views on 11/17/2017 reads as soft tissue swelling with air in the soft tissues around the elbow and proximal forearm. I did review these images and agree with the radiologist's interpretation. I do not see any fractures or dislocations. Chest x-ray, single view taken on 11/18/2007 reads as a left glenohumeral dislocation. I did review these images and agree with the radiologist's interpretation, as the humeral head does appear to be displaced anteriorly and medially compared to the glenoid. One view of the left shoulder on 11/17/2017 shows reads a successful reduction of the previous seen left glenohumeral dislocation. I have reviewed these images and agree with the radiologist's interpretation. IMPRESSION: 1. Left shoulder glenohumeral dislocation with successful closed reduction. 2. Left proximal forearm dog bite. MEDICAL DECISION MAKING: After reviewing the previous images of the left shoulder and examining the patient, it does appear that the previous glenohumeral dislocation of the left shoulder has been successfully reduced. I would recommend the patient use a sling for support and comfort. No further orthopedic intervention is necessary at this time. Regarding the patient's left proximal forearm dog bite, a consultation to general surgery has been placed. I would recommend either general surgery or hand follow this to ensure there are no further complications. I will see the patient back in the office in 1-2 weeks for reevaluation of the left shoulder if necessary. The patient can come out of the sling for gentle active range of motion. I have reviewed the above impression and plan of care with Dr. Mao and he agrees with this documentation. ELSIE Redman MD DSW/KD , 01:34 PM , 04:39 PM [facility]end[facility]
[2017-11-17] MEDS: CHLORHEXIDINE 0.12% (ORAL KIT) 15 ML CUP MT SCH (20:25)
[2017-11-17] MEDS: NEOMYCIN/POLYMYXIN/BACITRACIN OINT 15 GM TUBE TOPICAL SCH (20:26)
--- NOTE | 2017-11-17 21:33 | MB ---
cc: Joy Marcano MD, Sarah E MD DATE: 11/17/2017 REASON FOR CONSULTATION: Dog bite, left forearm. HISTORY OF PRESENT ILLNESS: Argelia Garcia is a 27-year-old male who apparently was brought into the emergency room on 11/17/2017 early in the morning around 1:30 a.m. Apparently, the patient was running from the police and was attacked by the canine dog. The patient initially was alert and oriented, but at the time of my consult he was intubated and sedated in the ICU. He apparently had a seizure and a shoulder dislocation, which was reduced. I was consulted for evaluation of dog bites over the left forearm. By exam, again the patient was intubated and sedated and had no motor or sensory function, but per the nurse who took care of the patient prior to the sedation, he was moving the left arm without significant pain. He did not complain of any paresthesias at that time. PAST MEDICAL HISTORY: Unknown. PAST SURGICAL HISTORY: Unknown. MEDICATIONS: Unknown. ALLERGIES: UNKNOWN. PHYSICAL EXAMINATION: GENERAL: The patient is intubated and sedated. The left upper extremity has a sling. There are multiple dog bites over the left forearm. Compartments are soft and compressible. No purulence. No crepitus with range of motion of the elbow. Palpable radial pulse. IMAGING STUDIES: X-rays of the forearm and elbow show no evidence of fracture or effusion. ASSESSMENT AND PLAN: A 27-year-old male with a bite to left forearm. At this time, I do not recommend any surgical intervention. He can also be followed by orthopedics who are treating his left shoulder dislocation. The wound should be cleansed and dressed and the patient should have IV antibiotics. He may be discharged to shelter from my standpoint. He can followup with me as needed. Joy Marcano MD [facility]/ , 09:18 PM , 09:32 PM [facility]end[facility]
[2017-11-18] VITALS (23 sets, daily range): BP systolic 105–130; BP diastolic 63–75; PULSE 88–98; RESP 18–148; TEMP 89.4–99.1; O2SAT 100
[2017-11-18] MEDS: DEXTROSE 50% IN WATER 50 ML VIAL(D50) IV PUSH PRN ×2 (03:46→08:32)
[2017-11-18] MEDS: RESP: ALBUTEROL 2.5 MG/IPRATROPIUM 0.5 MG NEB (SCH) INH ×4 (03:53→21:09)
[2017-11-18] MEDS: SODIUM CHLOR 0.9% 1000 ML INJ 1,000 ML IV SCH ×2 (03:56→08:19)
[2017-11-18] MEDS: INSULIN ASPART SUPPLEMENTAL SCALE SQ SCH ×3 (03:57→08:00)
[2017-11-18] MEDS: PROPOFOL 1000 MG/100 ML INJ 100 ML IV PRN ×2 (03:57→10:46)
[2017-11-18 05:14] LABS: AUTOMATED NEUTROPHIL # 8.2 TH/MM3 (1.8-7.7); BASOPHIL % 0.2 % (0.0-2.0); EOSINOPHIL # 0.1 TH/MM3 (0-0.4); EOSINOPHIL % 0.8 % (0.0-4.0); HEMATOCRIT 35.7 % (39.0-51.0); LYMPH % 12.5 % (9.0-44.0); LYMPHOCYTE # 1.3 TH/MM3 (1.0-4.8); MEAN CELL VOLUME 89.1 FL (80.0-100.0); MEAN CORPUSCULAR HEMOGLOBIN 30.1 PG (27.0-34.0); MEAN CORPUSCULAR HGB CONC 33.7 % (32.0-36.0); MEAN PLATELET VOLUME 8.7 FL (7.0-11.0); MONO % 5.4 % (0.0-8.0); MONOCYTE # 0.5 TH/MM3 (0-0.9); NEUT % 81.1 % (16.0-70.0); PLATELET COUNT 162 TH/MM3 (150-450); RED CELL DISTRIBUTION WIDTH 14.2 % (11.6-17.2); WHITE BLOOD COUNT 10.1 TH/MM3 (4.0-11.0)
[2017-11-18 05:34] LABS: BICARBONATE 21.6 MEQ/L (21.0-32.0); CREATININE 0.76 MG/DL (0.60-1.30)
[2017-11-18] MEDS: AMOXICILLIN/CLAVULANATE K 250 MG TAB PO SCH ×3 (06:01→21:26)
[2017-11-18] MEDS: CHLORHEXIDINE 0.12% (ORAL KIT) 15 ML CUP MT SCH ×2 (08:43→20:00)
[2017-11-18] MEDS: SODIUM CHLORIDE 0.9% FLUSH 10 ML FLUSH IV FLUSH SCH ×2 (08:44→21:26)
[2017-11-18] MEDS: DOCUSATE SODIUM 50 MG/SENNA 8.6 MG TAB PO SCH ×2 (08:44→21:00)
[2017-11-18] MEDS: NEOMYCIN/POLYMYXIN/BACITRACIN OINT 15 GM TUBE TOPICAL SCH ×2 (08:44→21:26)
[2017-11-18] MEDS: DEXT 5%-NACL 0.45% 1000 ML INJ 1,000 ML IV SCH ×3 (09:56→23:30)
--- NOTE | 2017-11-18 10:24 | HHI.PR ---
Subjective Remarks intubated vent no sz's reported Objective Vital Signs Date Time Temp Pulse Resp B/P (MAP) Pulse Ox O2 Delivery O2 Flow Rate FiO2 11/18/17 08:10 100 40 11/18/17 06:00 92 11/18/17 05:49 40 11/18/17 05:47 100 40 11/18/17 04:41 100 50 11/18/17 04:00 97.1 89 20 114/71 (85) 100 122/70 (87) 11/18/17 04:00 50 11/18/17 04:00 89 11/18/17 02:00 93 11/18/17 01:03 100 50 11/18/17 00:00 50 11/18/17 00:00 96.8 90 116 110/75 (87) 100 122/68 (86) 11/18/17 00:00 90 11/17/17 22:00 95 11/17/17 21:26 100 50 11/17/17 20:00 96.3 85 20 108/72 (84) 100 120/72 (88) 11/17/17 20:00 85 11/17/17 20:00 50 11/17/17 17:00 86 20 115/68 (84) 100 11/17/17 16:00 97.6 85 20 105/74 (84) 100 120/72 (88) 11/17/17 15:11 100 50 11/17/17 15:00 85 20 116/71 (86) 100 11/17/17 14:00 85 20 113/72 (86) 100 11/17/17 13:00 86 20 115/74 (88) 100 11/17/17 12:12 87 110 103/72 (82) 100 111/74 (86) 11/17/17 12:09 100 50 11/17/17 12:00 97.5 87 136 113/72 (86) 100 11/17/17 11:00 89 20 110/73 (85) 100 I/O 11/17/17 11/17/17 11/17/17 11/18/17 11/18/17 11/18/17 07:00 15:00 23:00 07:00 15:00 23:00 Intake Total 220 ml 950 ml 1000 ml 1280 ml Output Total 1000 ml 300 ml Balance 220 ml 950 ml 0 ml 980 ml Intake IV Total 220 ml 950 ml 1000 ml 1100 ml Other 180 ml Output Urine Total 1000 ml 300 ml # Bowel Movements 0 0 Result Diagram: 11/18/17 0456 11/18/17 0456 Objective Remarks intubated vent opens eyes to sternal rub looks at examiner some tracking then closes eyes again not following commands no significant w/d in extremities a/p ?sz -monitor for further sz -cpap trail -wean off sedation. eeg no sz's seen from yesterday. Tiny Irwin MD Nov 18, 2017 10:24
--- NOTE | 2017-11-18 15:24 | HHI.CCPN ---
Subjective Remarks/Hospital Course 27-year-old male presents in police custody for medical clearance to [facility]. Patient was apprehended by police canine. Patient states that he has not had a tetanus shot in over 5 years. Pain is mild to moderate. Patient sustained a bite to the left forearm. No other injuries. In the emergency department he denied any injury to his head, neck or back. No chest or abdominal pain. While in the ED he suffered episode that looked like a seizure , after which he remains obtunded. 11/17: 0715 received in [facility], patient completely obtunded , nonresponsive unable to protect airway,possible postictal state. Pupils 3 mm, sluggishly reactive. Patient received 2 mg of Ativan at 4:30 AM, and Narcan 0.4 mg at 630 am in the ED. In the ED the patient was noted to be having seizures upon admission and received 1 g of Dilantin, and Keppra. Glucose was noted to be 64 and had received D50 in the ED, point of care testing, glucose pending. Subjective: 11/18 EEG on 11/17 showed no seizures. Neurology is not recommending ongoing anticonvulsants. He is on propofol 35 mcg/kg/min but awakens and follows commands. Placing on CPAP. CPK 2900. Discontinuing art line. Objective Vital Signs Date Time Temp Pulse Resp B/P (MAP) Pulse Ox O2 Delivery O2 Flow Rate FiO2 11/18/17 14:50 100 40 11/18/17 13:00 91 20 115/63 (80) 11/18/17 12:00 89.4 11/17/17 06:31 Nasal Cannula 3.00 Intake and Output 11/18/17 11/18/17 11/19/17 08:00 16:00 00:00 Intake Total 1280 ml Output Total 300 ml Balance 980 ml Result Diagram: 11/18/17 0456 11/18/17 0456 Imaging Last [address] 11/17/17 5398 Signed Impressions: CONCLUSION: Negative noncontrast head CT. Chest X-Ray 11/17/17 0226 Signed Impressions: CONCLUSION: Left glenohumeral dislocation. Radius/Ulna X-Ray 11/17/17 0147 Signed Impressions: CONCLUSION: Soft tissue swelling with air in the soft tissues around the elbow and proximal forearm. Objective Remarks GENERAL: This is a well-developed well-nourished 27-year-old -[place] male who is awake and following commands. HEAD: Normocephalic. EYES: No scleral icterus. 3 mm sluggishly reactive no injection or drainage. NECK: Supple, trachea midline. No JVD or lymphadenopathy. CARDIOVASCULAR: Regular rate and rhythm without murmurs, gallops, or rubs. RESPIRATORY: Breath sounds equal bilaterally. No accessory muscle use. Clear to auscultation GASTROINTESTINAL: Abdomen soft, non-tender, nondistended. Bowel sounds active MUSCULOSKELETAL: No cyanosis, or edema. Left arm in sling. Gauze dressing in place overlying left forearm, clean and intact NEURO EXAM: Eyes open, makes eye contact, follows commands with all extremities. A/P Problem List: (1) ? seizure Status: Resolved (2) Acute encephalopathy ICD Code: G93.40 - Encephalopathy, unspecified Status: Resolved (3) Acute respiratory failure ICD Code: J96.00 - Acute respiratory failure, unspecified whether with hypoxia or hypercapnia Status: Resolved (4) Rhabdomyolysis ICD Code: M62.82 - Rhabdomyolysis Status: Acute (5) Dog bite of arm ICD Code: S41.159A - Open bite of unspecified upper arm, initial encounter; W54.0XXA - Bitten by dog, initial encounter Status: Acute (6) Medical clearance for incarceration ICD Code: Z00.8 - Encounter for other general examination Status: Acute (7) Hypoglycemia ICD Code: E16.2 - Hypoglycemia, unspecified Status: Acute (8) Dislocation of left shoulder joint ICD Code: S43.005A - Unspecified dislocation of left shoulder joint, initial encounter Status: Resolved Assessment and Plan Plan by systems: Neurologic: Toxic /metabolic encephalopathy ?Seizure Substance abuse disorder Cannabinoid abuse Sedation vacation. DC propofol 6/2-in ED, patient with seizure activity loaded with Keppra and Dilantin. Patient received Narcan x1 dose, as well as Motrin 1 day (MRA pending) U tox positive for cannaboids and Alcohol level 6 6/2 CT brain-negative EEG 6/2no evidence of seizures. Was evaluated by neurology, Dr. Irwin who states he does not need ongoing anticonvulsant therapy MRI brain 6/2 -disconjugate gaze at the time of the scan. No other abnormalities. Normal ammonia level Respiratory: Acute hypercapnic respiratory insufficiency 6/2 -intubated 8.0 ETT at 24 - patient was unable to protect airway. Maintain O2 saturation greater than 92% CPAP trial today with plan to extubate if tolerated. Ventilator bundle Duo nebs every 6 hours scheduled every 2 hours as needed Cardiovascular: Hypotension, resolved Telemetry sinus rhythm FEN/Renal: Acute rhabdomyolysis Condom catheter. CPK is 2909. Creatinine is normal. Continue D5 NS at 1 50 mL /h, can back off when he is taking some p.o. Recheck BMP and CPK in a.m. to ensure CPK is down trending FEN/GI: Bedside swallow evaluation when extubated Bowel regimen Zofran for nausea Heme/ID: Leukocytosis, resolved Endocrine: Hypoglycemia / in the ED the patient received 2 A of D50 Glucose monitoring q6 hours. Added D51/2 NS @ 150 ml/hr this morning. MSK: Dislocated left glenohumeral joint Canine bite injury Follow-up with orthopedics, Dr. Vazquez in 1-2 weeks for reevaluation of left shoulder. Ok to come out of sling for gentle active ROM per orthopedics. Continue -Amoxicillin-clavulanate HAs been evaluated by hand surgery, -Dr. Joy Marcano, and cleared for discharge. Bacitracin is being applied. / in ED patient received tetanus toxoid Prophylaxis: GI Prophylaxis Famotidine DVT Prophylaxis -- SCDs, Lovenox 40 mg subcut daily Lines: Peripheral IVs 2. Right radial A-line in place, no longer indicated, will d/ c. CPAP trial today. Will extubate if tolerated. Problem Qualifiers (1) Rhabdomyolysis: (2) Dog bite of arm: Samantha Pompa MD Nov 18, 2017 15:24
[2017-11-18] MEDS: ENOXAPARIN SODIUM 40 MG/0.4 ML SYRINGE SQ SCH (16:32)
[2017-11-19] VITALS (12 sets, daily range): BP systolic 104–136; BP diastolic 59–77; PULSE 81–101; RESP 16–144; TEMP 98.3–98.7; O2SAT 96–100
[2017-11-19] MEDS: RESP: ALBUTEROL 2.5 MG/IPRATROPIUM 0.5 MG NEB (SCH) INH ×4 (05:10→21:08)
[2017-11-19] MEDS: AMOXICILLIN/CLAVULANATE K 250 MG TAB PO SCH (05:50)
[2017-11-19] MEDS: DEXT 5%-NACL 0.45% 1000 ML INJ 1,000 ML IV SCH ×3 (05:50→21:33)
[2017-11-19 07:41] LABS: CALCIUM 8.4 MG/DL (8.5-10.1); CREATININE 0.77 MG/DL (0.60-1.30)
--- NOTE | 2017-11-19 07:58 | HHI.PR ---
Subjective Remarks in no acute distress. awake but not responding to my questions. no fever. d/w the RN and no other acute issues over night. Objective Vitals Vital Signs Date Time Temp Pulse Resp B/P (MAP) Pulse Ox O2 Delivery O2 Flow Rate FiO2 11/19/17 06:00 89 11/19/17 04:00 98.4 81 64 117/73 (88) 100 11/19/17 04:00 81 11/19/17 02:00 91 11/19/17 00:00 98.3 89 51 117/69 (85) 100 11/19/17 00:00 89 11/18/17 22:00 93 11/18/17 20:00 98.6 93 22 110/69 (83) 100 Arterial Line 11/18/17 20:00 93 11/18/17 16:38 100 Nasal Cannula 3 11/18/17 16:05 100 40 11/18/17 16:04 40 11/18/17 16:00 40 11/18/17 16:00 99.1 98 18 105/64 (78) 100 11/18/17 15:00 96 136 120/63 (82) 100 11/18/17 14:50 100 40 11/18/17 14:00 95 78 122/67 (85) 100 11/18/17 13:00 91 20 115/63 (80) 100 11/18/17 12:00 40 11/18/17 12:00 98.4 88 20 106/66 (79) 100 114/64 (81) 11/18/17 11:39 100 40 11/18/17 11:00 89 20 130/67 (88) 100 11/18/17 10:00 91 21 127/66 (86) 100 11/18/17 09:00 93 148 129/64 (85) 100 11/18/17 08:10 100 40 11/18/17 08:00 98.4 91 109 113/67 (82) 100 126/67 (86) 11/18/17 08:00 40 I/O 11/18/17 11/18/17 11/18/17 11/19/17 11/19/17 11/19/17 07:00 15:00 23:00 07:00 15:00 23:00 Intake Total 1280 ml 400 ml 1215 ml 1775 ml Output Total 300 ml 1500 ml 1350 ml Balance 980 ml 400 ml -285 ml 425 ml Intake IV Total 1100 ml 400 ml 1215 ml 1775 ml Other 180 ml Output Urine Total 300 ml 1500 ml 1350 ml # Bowel Movements 0 0 0 Result Diagram: 11/18/1745511/18/17455 Imaging Last Impressions Chest X-Ray 11/17/17 0735 Signed Impressions: CONCLUSION: Lines and tubes which appear to be appropriate in position. Lungs are clear. Shoulder X-Ray 11/17/17450 Signed Impressions: CONCLUSION: Successful reduction of the previous seen left glenohumeral dislocation. Head CT 11/17/17 0238 Signed Impressions: CONCLUSION: Negative noncontrast head CT. Radius/Ulna X-Ray 11/17/17 0147 Signed Impressions: CONCLUSION: Soft tissue swelling with air in the soft tissues around the elbow and proximal forearm. Neck Magnetic Resonance Angiography 11/17/17 0000 Signed Impressions: CONCLUSION: 1. Normal exam Percent stenosis is calculated using the diameter of the stenotic region over t he diameter of the normal distal internal carotid artery Head Magnetic Resonance Angiography 11/17/17 0000 Signed Impressions: CONCLUSION: 1. Normal exam Elbow X-Ray 11/17/17 0000 Signed Impressions: CONCLUSION: Nonspecific soft tissue swelling. No bony abnormality or significant joint effu bertha demonstrated. Brain MRI 11/17/17 0000 Signed Impressions: CONCLUSION: 1. The orbits demonstrate disconjugate gaze. The exam is otherwise unremarkabl e. Objective Remarks GENERAL: This is a well-nourished, well-developed patient, in no apparent distress. CARDIOVASCULAR: Regular rate and regular rhythm without murmurs, gallops, or rubs. RESPIRATORY: Clear to auscultation. Breath sounds equal bilaterally. No wheezes , rales, or rhonchi. GASTROINTESTINAL: Abdomen soft, non-tender, nondistended. Normal, active bowel sounds MUSCULOSKELETAL: left elbow covered with clean dressing. NEURO: Awake but not responding to my questions. Medications and IVs Inpatient Medications Albuterol/ Ipratropium (Duoneb Neb) 1 ampule Q2HR NEB PRN INH WHEEZING; Start 11/17/17 at 08:30 Amoxicillin/ Clavulanate Potassium (Augmentin) 250 mg Q8HR PO Last administered on 11/18/17at 14:17; Start 11/17/17 at 06:00 Bisacodyl (Dulcolax Supp) 10 mg DAILY PRN RECTAL SEVERE CONSITIPATION; Start at 08:30 Chlorhexidine Gluconate (Peridex 0.12% Liq) 15 ml BID@08,20 MT Last administered on 11/18/17at 08:43; Start 11/17/17 at 20:00 Dextrose (D50w (Vial) Inj) 50 ml UNSCH PRN IV PUSH HYPOGLYCEMIA-SEE COMMENTS Last administered on 11/18/17at 08:32; Start 11/17/17 at 08:30 Dextrose/Sodium Chloride 1,000 ml @ 150 mls/hr Q6H40M IV Last administered on 11/19/17at 05:50; Start 11/18/17 at 09:30 Enoxaparin Sodium (Lovenox Inj) 40 mg Q24H SQ Last administered on 11/18/17at 16: 32; Start 11/18/17 at 16:00 Fentanyl Citrate (fentaNYL INJ) 100 mcg Q3H PRN IV PUSH PAIN SCALE 7 TO 10; Start 11/17/17 at 11:00 Glucagon (Glucagon Inj) 1 mg UNSCH PRN OTHER HYPOGLYCEMIA-SEE COMMENTS; Start 11/17/17 at 08:30 Ibuprofen (Motrin) 600 mg ONCE ONCE PO Last administered on 11/17/17at 02:16; Start 11/17/17 at 02:00; Stop 11/17/17 at 02:01; Status DC Insulin Aspart (NovoLOG SUPPLEMENTAL SCALE) 1 Q4HR SQ ; Start 11/17/17 at 12:00; Stop 11/18/17 at 09:32; Status DC Lactulose (Lactulose Liq) 30 ml DAILY PRN PO SEVERE CONSITIPATION; Start at 08:30 Levetriacetam 100 ml @ 400 mls/hr BOLUS ONCE IV Last administered on at 06:11; Start 11/17/17 at 05:45; Stop 11/17/17 at 05:59; Status DC Lorazepam (Ativan Inj) 2 mg UNSCH PRN IV PUSH SEE LABEL COMMENTS; Start at 05:00 Magnesium Hydroxide (Milk Of Magnesia Liq) 30 ml Q12H PRN PO Mild constipation ; Start 11/17/17 at 08:30 Magnesium Oxide (Mag-Ox) 800 mg UNSCH PRN PO For Magnesium 1.2 - 1.6 mg/dL; Start 11/17/17 at 06:00 Magnesium Sulfate 2 gm/Sodium Chloride 100 ml @ 50 mls/hr UNSCH PRN IV For Magnesium 1.2 - 1.6 mg/dL; Start 11/17/17 at 06:00 Magnesium Sulfate 4 gm/Sodium Chloride 100 ml @ 50 mls/hr UNSCH PRN IV For Magnesium 0.9 - 1.1 mg/dL; Start 11/17/17 at 06:00 Naloxone HCl (Narcan Inj) 0.4 mg ONCE ONCE IV PUSH Last administered on at 06:33; Start 11/17/17 at 05:45; Stop 11/17/17 at 05:47; Status DC Neomycin/ Polymyxin/ Bacitracin (Neosporin Oint) 1 applic BID TOPICAL Last administered on 11/18/17at 21:26; Start 11/17/17 at 21:00 Ondansetron HCl (Zofran Odt) 4 mg Q6H PRN PO NAUSEA OR VOMITING; Start at 05:15 Phenytoin Sodium 1000 mg/Sodium Chloride 120 ml @ 360 mls/hr BOLUS ONCE IV Last administered on 11/17/17at 05:50; Start 11/17/17 at 05:00; Stop 11/17/17 at 05: 19; Status DC Potassium Phosphate (K-Phos) 2,000 mg UNSCH PRN PO/TUBE SEE LABEL COMMENTS; Start 11/17/17 at 06:00 Potassium Phosphate 30 mmol/ Sodium Chloride 260 ml @ 42 mls/hr UNSCH PRN IV SEE LABEL COMMENTS; Start 11/17/17 at 06:00 Potassium Bicarb/ Potassium Chloride (K-Lyte Cl Eff) 50 meq UNSCH PRN PO For Potassium 3.3 - 3.5 mEq/L; Start 11/17/17 at 06:00 Potassium Chloride 100 ml @ 50 mls/hr Q2H PRN IV For Potassium 3.3 - 3.5 mEq/L ; Start 11/17/17 at 06:00 Promethazine HCl (Phenergan Inj) 25 mg ONCE ONCE IM Last administered on at 04:59; Start 11/17/17 at 05:00; Stop 11/17/17 at 05:01; Status DC Propofol 100 ml @ 1.725 mls/ hr TITRATE PRN IV SEDATION Last administered on at 10:46; Start 11/17/17 at 07:30 Propofol (Diprivan 500 Mg/ 50 ml Inj) 120 mg SHIPPING WEIGHER IV Last administered on at 09:17; Start 11/17/17 at 07:30; Stop 11/18/17 at 07:29; Status DC Rocuronium [place] (Zemuron Inj) 50 mg SHIPPING WEIGHER IV Last administered on at 08:58; Start 11/17/17 at 07:15; Stop 11/18/17 at 07:14; Status DC Senna/Docusate Sodium (Iza-Colace) 1 tab BID PO Last administered on 11/18/17at 08:44; Start 11/17/17 at 09:00 Sennosides (Senokot) 17.2 mg Q12H PRN PO Moderate constipation; Start 11/17/17 at 08:30 Sodium Chloride 1,000 ml @ 150 mls/hr Q6H40M IV Last administered on 11/18/17at 03:56; Start 11/17/17 at 05:45; Stop 11/18/17 at 16:23; Status DC Sodium Chloride (NS Flush) 2 ml BID IV FLUSH Last administered on 11/18/17at 21: 26; Start 11/17/17 at 09:00 Sodium Phosphate 30 mmol/Sodium Chloride 250 ml @ 42 mls/hr UNSCH PRN IV For Phosphorus < 2.5 mg/dL; Start 11/17/17 at 06:00 Succinylcholine Chloride (Quelicin Inj) 120 mg SHIPPING WEIGHER IV PUSH ; Start 11/17/17 at 07:30; Stop 11/18/17 at 07:29; Status DC Tetanus/ Diphtheria Toxoids (Tetanus/ Diphtheria Tox Adult) 0.5 ml ONCE ONCE IM Last administered on 11/17/17at 02:15; Start 11/17/17 at 02:00; Stop 11/17/17 at 02:01; Status DC A/P Assessment and Plan A/P Toxic /metabolic encephalopathy ?Seizure Substance abuse disorder Cannabinoid abuse 11/17-in ED, patient with seizure activity loaded with Keppra and Dilantin. Patient received Narcan x1 dose, as well as Motrin 1 day (MRA pending) U tox positive for cannaboids and Alcohol level 6 11/17 CT brain-negative EEG 2no evidence of seizures. Was evaluated by neurology, Dr. Irwin who states he does not need ongoing anticonvulsant therapy MRI brain 11/17 -disconjugate gaze at the time of the scan. No other abnormalities. Normal ammonia level will consult psych. Acute hypercapnic respiratory insufficiency s/p intubation/ extubation stable- continue to monitor. Hypotension, resolved Acute rhabdomyolysis continue with IV fluid. CPK level today pending. Leukocytosis, resolved Hypoglycemia 11/17 in the ED the patient received 2 A of D50 Glucose monitoring q6 hours. continue D51/2 NS. Dislocated left glenohumeral joint Canine bite injury Follow-up with orthopedics, Dr. Vazquez in 1-2 weeks for reevaluation of left shoulder. Ok to come out of sling for gentle active ROM per orthopedics. started on Amoxicillin-clavulanate but the patient refused- will change to IV Unasyn for now. HAs been evaluated by hand surgery, -Dr. Joy Marcano, and cleared for discharge. Bacitracin is being applied. 11/17 in ED patient received tetanus toxoid. consult wound care nurse Prophylaxis: GI Prophylaxis Famotidine DVT Prophylaxis -- SCDs, Lovenox 40 mg subcut daily transfer to floor. d/w the Jenn Talamantes MD Nov 19, 2017 07:58
[2017-11-19] MEDS: CHLORHEXIDINE 0.12% (ORAL KIT) 15 ML CUP MT SCH ×2 (08:00→20:00)
[2017-11-19] MEDS: SODIUM CHLORIDE 0.9% FLUSH 10 ML FLUSH IV FLUSH SCH ×2 (08:17→21:35)
[2017-11-19] MEDS: DOCUSATE SODIUM 50 MG/SENNA 8.6 MG TAB PO SCH ×2 (08:18→21:00)
[2017-11-19] MEDS: NEOMYCIN/POLYMYXIN/BACITRACIN OINT 15 GM TUBE TOPICAL SCH ×2 (08:19→21:00)
[2017-11-19] MEDS: AMPICILLIN-SULBACTAM INJ 3 GM in SODIUM CHLORIDE 0.9% INJ 100 ML IV SCH ×3 (08:28→21:34)
[2017-11-19] MEDS ORDERED: LORazepam 1 MG TAB PO PRN (14:45)
[2017-11-19] MEDS ORDERED: FLUMAZENIL 0.5 MG/5 ML VIAL IV PUSH PRN (14:45)
[2017-11-19] MEDS ORDERED: LORazepam 2 MG TAB PO PRN (14:45)
[2017-11-19] MEDS ORDERED: LORazepam 2 MG/ML VIAL IV PUSH PRN ×4 (14:45)
--- NOTE | 2017-11-19 14:49 | PD.PSY.CON ---
Provisional Diagnosis Admission Date Nov 17, 2017 at 04:59 [place] I. Substance-induced psychosis, polysubstance dependence including cocaine, Xanax, alcohol, Lenny, delirium secondary to alcohol withdrawal [place] II. Deferred [place] III. No significant medical history [place] IV. Under arrest [place] V. 56 History of Present Illness Service Psychiatry Consult Requested By Medicine Reason for Consult Altered mental status Primary Care Physician No Primary Care Physician HPI The patient is a 27-year-old -Prydein[place] man, he is domiciled in [place], single, unemployed, he denies any previous psychiatric history, denies previous psychiatric hospitalizations, denies previous suicidal attempts, he does report that he use alcohol, cocaine, Xanax, lenny, no significant medical history, who presents in police custody for medical clearance to go to senior care. Patient was apprehended by police canine. Patient states that he has not had a tetanus shot in over 5 years. Pain is mild to moderate. Patient sustained a bite to the left forearm. No other injuries. In the emergency department he denied any injury to his head, neck or back. No chest or abdominal pain. While in the ED he suffered episode that looked like a seizure, after which he remains obtunded. Patient was admitted with Toxic /metabolic encephalopathy/Seizure Substance abuse disorder. 6/2-in ED, patient with seizure activity loaded with Keppra and Dilantin. Patient received Narcan x1 dose, as well as Motrin 1 day (MRA pending). U tox positive for cannaboids and Alcohol level 6. 6/2 CT brain- negative. EEG 6/2no evidence of seizures. Was evaluated by neurology, Dr. Irwin who states he does not need ongoing anticonvulsant therapy, MRI brain 6/ 2 -disconjugate gaze at the time of the scan. Consulted to psychiatry due to psychosis. On psychiatric evaluation today the patient is found sleeping, quite sedated, difficult to arouse. At the beginning superficially cooperative , selectively mute. He was able to be redirected and reassured. The patient was able to answer most of my questions. During the evaluation the patient keeps asking for his kids, but was unable to elaborate about the reason of his arrest. He does say that he feels better. He denies suicidal and homicidal ideation, he denies visual and auditory hallucinations. The patient denies previous psychiatric history. He is oriented 3. He knows that he is in a hospital, knows the date, knows who is the fitter up. He reports the use of alcohol daily, Xanax almost daily, cocaine and Lenny occasionally. Review of Systems Constitutional: DENIES: Diaphoretic episodes, Fatigue, Fever, Weight gain, Weight loss, Chills, Dizziness, Change in appetite, Night Sweats Endocrine: DENIES: Heat/cold intolerance, Polydipsia, Polyuria, Polyphagia Eyes: DENIES: Blurred vision, Diplopia, Eye inflammation, Eye pain, Vision loss , Photosensitivity, Double Vision Ears, nose, mouth, throat: DENIES: Tinnitus, Hearing loss, Vertigo, Nasal discharge, Oral lesions, Throat pain, Hoarseness, Ear Pain, Running Nose, Epistaxis, Sinus Pain, Toothache, Odynophagia Respiratory: DENIES: Apneas, Cough, Snoring, Wheezing, Hemoptysis, Sputum production, Shortness of breath Cardiovascular: DENIES: Chest pain, Palpitations, Syncope, Dyspnea on Exertion , PND, Lower Extremity Edema, Orthopnea, Claudication Gastrointestinal: DENIES: Abdominal pain, Black stools, Bloody stools, Constipation, Diarrhea, Nausea, Vomiting, Difficulty Swallowing, Anorexia Genitourinary: DENIES: Sexual dysfunction, Urinary frequency, Urinary incontinence, Urgency, Hematuria, Dysuria, Nocturia, Penile Discharge, Testicular Pain, Testicular Swelling Musculoskeletal: DENIES: Joint pain, Muscle aches, Stiffness, Joint Swelling, Back pain, Neck pain Integumentary: DENIES: Abnormal pigmentation, Nail changes, Pruritus, Rash Hematologic/lymphatic: DENIES: Bruising, Lymphadenopathy Immunologic/allergic: DENIES: Eczema, Urticaria Psychiatric: DENIES: Anxiety, Confusion, Mood changes, Depression, Hallucinations, Agitation, Suicidal Ideation, Homicidal Ideation, Delusions Past Family Social History Coded Allergies: No Known Allergies (Unverified , 11/17/17) Active Scripts Ibuprofen (Ibuprofen) 600 Mg Tab, 600 MG PO Q6H Y for Pain/Inflammation, #40 TAB 0 Refills Prov:Mckenna Dempsey MD 11/17/17 Amoxicillin-Clavulanate (Augmentin) 875-125 Mg Tab, 1 TAB PO BID for Infection for 10 Days, #20 TAB 0 Refills Prov:Mckenna Dempsey MD 11/17/17 Current Medications Medications (Trade) Dose Ordered Sig/Reggie Route Start Time Stop Time Status Last Admin (Augmentin) 250 mg Q8HR PO 11/17/17 06:00 Future Hold 11/18/17 14:17 (NS Flush) 2 ml UNSCH PRN IV FLUSH 11/17/17 05:00 (NS Flush) 2 ml BID IV FLUSH 11/17/17 09:00 11/19/17 08:17 (Ativan Inj) 2 mg UNSCH PRN IV PUSH 11/17/17 05:00 (Zofran Odt) 4 mg Q6H PRN PO 11/17/17 05:15 Sodium Phosphate 30 mmol/Sodium Chloride 250 ml @ 42 mls/hr UNSCH PRN IV 11/17/17 06:00 (D50w (Vial) Inj) 50 ml UNSCH PRN IV PUSH 11/17/17 08:30 11/18/17 08:32 (Glucagon Inj) 1 mg UNSCH PRN OTHER 11/17/17 08:30 (Peridex 0.12% Liq) 15 ml BID@08,20 MT 11/17/17 20:00 11/19/17 08:00 (Duoneb Neb) 1 ampule Q6HR NEB INH 11/17/17 10:00 11/19/17 05:10 (Duoneb Neb) 1 ampule Q2HR NEB PRN INH 11/17/17 08:30 (Iza-Colace) 1 tab BID PO 11/17/17 09:00 11/18/17 08:44 (Milk Of Magnesia Liq) 30 ml Q12H PRN PO 11/17/17 08:30 (Senokot) 17.2 mg Q12H PRN PO 11/17/17 08:30 (Dulcolax Supp) 10 mg DAILY PRN RECTAL 11/17/17 08:30 (Lactulose Liq) 30 ml DAILY PRN PO 11/17/17 08:30 (fentaNYL INJ) 100 mcg Q3H PRN IV PUSH 11/17/17 11:00 (Neosporin Oint) 1 applic BID TOPICAL 11/17/17 21:00 11/19/17 08:19 Dextrose/Sodium Chloride 1,000 ml @ 150 mls/hr Q6H40M IV 11/18/17 09:30 11/19/17 13:18 (Lovenox Inj) 40 mg Q24H SQ 11/18/17 16:00 11/18/17 16:32 Ampicillin Sodium/ Sulbactam Sodium 3 gm/Sodium Chloride 100 ml @ 200 mls/hr Q6H IV 11/19/17 08:00 11/19/17 08:28 (Romazicon Inj) 0.2 mg Q1M PRN IV PUSH 11/19/17 14:45 UNV (Ativan) 1 mg Q4H PRN PO 11/19/17 14:45 UNV (Ativan Inj) 1 mg Q4H PRN IV PUSH 11/19/17 14:45 UNV (Ativan) 2 mg Q2H PRN PO 11/19/17 14:45 UNV (Ativan Inj) 2 mg Q2H PRN IV PUSH 11/19/17 14:45 UNV (Ativan Inj) 2 mg Q1H PRN IV PUSH 11/19/17 14:45 UNV Family Psych History He denies family psychiatric history Social History Patient was born and raised in [place], he lives in [place] alone, is single, unemployed, his highest level of education is 11th grade Patient's Strengths (min. 2) No previous psychiatric history Physical Exam Patient is quite hypoactive, psychomotor retarded, but no tremors, no EPS or withdrawal present Vital Signs Vital Signs Date Time Temp Pulse Resp B/P (MAP) Pulse Ox O2 Delivery O2 Flow Rate FiO2 11/19/17 12:15 98.5 93 17 112/77 (89) 99 11/19/17 10:43 Nasal Cannula 2.00 11/18/17 16:05 40 I/O 11/19/17 11/19/17 11/20/17 08:00 16:00 00:00 Intake Total 1000 ml Output Total 1350 ml Balance -350 ml Lab Results Test 11/19/17 06:35 Blood Urea Nitrogen 2 MG/DL Creatinine 0.77 MG/DL Random Glucose 95 MG/DL Calcium Level 8.4 MG/DL Sodium Level 141 MEQ/L Potassium Level 3.5 MEQ/L Chloride Level 107 MEQ/L Carbon Dioxide Level 26.0 MEQ/L Anion Gap 8 MEQ/L Estimat Glomerular Filtration Rate 148 ML/MIN Total Creatine Kinase 1960 U/L Creatine Kinase MB 2.1 NG/ML Creatine Kinase MB % 0.1 % Mental Status Examination Appearance: Disheveled Consciousness: Alert Orientation: x4 Motor Activity: Normal gait Speech: Unremarkable Language: Adequate Fund of Knowledge: Adequate Attention and Concentration: Adequate Memory: Unremarkable Mood: Appropriate Affect: Appropriate Thought Process & Associations: Intact Thought Content: Appropriate Hallucination Type: None Delusion Type: None Suicidal Ideation: No Suicidal Plan: No Suicidal Intention: No Homicidal Ideation: No Homicidal Plan: No Homicidal Intention: No Insight: Fair Judgment: Impulsive Assessment & Plan Problem List: (1) Unspecified psychosis ICD Codes: F29 - Unspecified psychosis not due to a substance or known physiological condition Assessment & Plan: On my psychiatric evaluation today the patient is found sleeping, quite sedated, is superficially cooperative, selectively mute, kind of oppositional. The patient denies symptoms of depression, anxiety, royce and psychosis. The patient denies suicidal and homicidal ideation, he denies visual and auditory hallucinations. He is oriented 3. He denies previous psychiatric history, previous suicide attempts. He does report daily use of alcohol, Xanax, occasional use of cocaine and Lenny. There is no agitation or aggressive behavior present during my evaluation. I do not see any reason for psychiatric hospitalization at this moment. I suggested the patient is placed in CIWA protocol. Haldol 5 mg IM every 8 hours as needed aggressive behavior and agitation. Once patient is medically cleared could be discharged back to police custody Assessment & Plan Estimated LOS: Mak Miller MD Nov 19, 2017 14:49
[2017-11-19] MEDS: ENOXAPARIN SODIUM 40 MG/0.4 ML SYRINGE SQ SCH (17:39)
--- NOTE | 2017-11-19 17:52 | PD.WCN.NOT ---
Wound Consult Additional Information: Attempted to see patient earlier for wound care consult for L elbow, patient was moved to [address] [place] [address] per RN in [facility]. Torri Mora [facility] Nov 19, 2017 17:52
[2017-11-20] VITALS: BP 103/55; PULSE 90; RESP 16; TEMP 99.2; O2SAT 100
[2017-11-20] MEDS: AMPICILLIN-SULBACTAM INJ 3 GM in SODIUM CHLORIDE 0.9% INJ 100 ML IV SCH ×2 (03:19→09:20)
[2017-11-20 03:53] VITALS: BP 116/55; PULSE 82; RESP 16; TEMP 98.2; O2SAT 98
[2017-11-20] MEDS: RESP: ALBUTEROL 2.5 MG/IPRATROPIUM 0.5 MG NEB (SCH) INH ×3 (04:00→22:00)
[2017-11-20 08:00] VITALS: BP 105/63; PULSE 79; RESP 20; TEMP 98; O2SAT 100
[2017-11-20] MEDS: CHLORHEXIDINE 0.12% (ORAL KIT) 15 ML CUP MT SCH ×2 (08:00→20:00)
[2017-11-20] MEDS: SODIUM CHLORIDE 0.9% FLUSH 10 ML FLUSH IV FLUSH SCH ×2 (09:00→20:40)
[2017-11-20] MEDS: DOCUSATE SODIUM 50 MG/SENNA 8.6 MG TAB PO SCH ×2 (09:00→20:40)
[2017-11-20] MEDS: NEOMYCIN/POLYMYXIN/BACITRACIN OINT 15 GM TUBE TOPICAL SCH ×2 (09:00→20:41)
[2017-11-20] MEDS: DEXT 5%-NACL 0.45% 1000 ML INJ 1,000 ML IV SCH ×3 (09:20→20:41)
--- NOTE | 2017-11-20 11:14 | HHI.PR ---
Subjective Remarks Follow-up rhabdomyolysis November 20, 2017-patient seen and examined, afebrile and no acute event overnight. Alert and oriented 3. No seizure episode. CK 1600 as of November 19, 2017. Patient was having his left upper arm wound dressing change. Correctional officers in the room. Case discussed this a.m. with psychiatry. Patient denies any withdrawal signs. Objective Vitals Vital Signs Date Time Temp Pulse Resp B/P (MAP) Pulse Ox O2 Delivery O2 Flow Rate FiO2 11/20/17 08:00 98.0 79 20 105/63 (77) 100 11/20/17 03:53 98.2 82 16 116/55 (75) 98 11/20/17 03:53 Room Air 11/20/17 00:00 Room Air 11/20/17 00:00 99.2 90 16 103/55 (71) 100 11/19/17 20:00 98.7 101 16 136/59 (84) 96 11/19/17 20:00 Room Air 11/19/17 16:05 98.7 98 17 115/74 (88) 100 11/19/17 12:15 98.5 93 17 112/77 (89) 99 I/O 11/19/17 11/19/17 11/19/17 11/20/17 11/20/17 11/20/17 07:00 15:00 23:00 07:00 15:00 23:00 Intake Total 1775 ml 1700 ml 540 ml Output Total 1350 ml 625 ml 700 ml Balance 425 ml 1075 ml -160 ml Intake Oral 600 ml 440 ml IV Total 1775 ml 1100 ml 100 ml Output Urine Total 1350 ml 625 ml 700 ml # Bowel Movements 0 0 0 Result Diagram: 11/18/176 11/19/17 0635 Imaging Last Impressions Chest X-Ray 11/17/17 0735 Signed Impressions: CONCLUSION: Lines and tubes which appear to be appropriate in position. Lungs are clear. Shoulder X-Ray 11/17/17 2321 Signed Impressions: CONCLUSION: Successful reduction of the previous seen left glenohumeral dislocation. Head CT 11/17/17 8746 Signed Impressions: CONCLUSION: Negative noncontrast head CT. Radius/Ulna X-Ray 11/17/17 4249 Signed Impressions: CONCLUSION: Soft tissue swelling with air in the soft tissues around the elbow and proximal forearm. Neck Magnetic Resonance Angiography 11/17/17 0000 Signed Impressions: CONCLUSION: 1. Normal exam Percent stenosis is calculated using the diameter of the stenotic region over t he diameter of the normal distal internal carotid artery Head Magnetic Resonance Angiography 11/17/17 0000 Signed Impressions: CONCLUSION: 1. Normal exam Elbow X-Ray 11/17/17 0000 Signed Impressions: CONCLUSION: Nonspecific soft tissue swelling. No bony abnormality or significant joint effu bertha demonstrated. Brain MRI 11/17/17 0000 Signed Impressions: CONCLUSION: 1. The orbits demonstrate disconjugate gaze. The exam is otherwise unremarkabl e. Objective Remarks GENERAL: NAD SKIN: Warm and dry.LUE wound HEAD: Normocephalic. EYES: No scleral icterus. No injection or drainage. NECK: Supple, trachea midline. No JVD or lymphadenopathy. CARDIOVASCULAR: Regular rate and rhythm without murmurs, gallops, or rubs. RESPIRATORY: Breath sounds equal bilaterally. No accessory muscle use. GASTROINTESTINAL: Abdomen soft, non-tender, nondistended. MUSCULOSKELETAL: No cyanosis, or edema. BACK: Nontender without obvious deformity. No CVA tenderness. A/P Problem List: (1) Dislocation of left shoulder joint ICD Code: S43.005A - Unspecified dislocation of left shoulder joint, initial encounter Status: Resolved (2) Dog bite of arm ICD Code: S41.159A - Open bite of unspecified upper arm, initial encounter; W54.0XXA - Bitten by dog, initial encounter Status: Acute (3) Rhabdomyolysis ICD Code: M62.82 - Rhabdomyolysis Status: Acute (4) Acute encephalopathy ICD Code: G93.40 - Encephalopathy, unspecified Status: Resolved Assessment and Plan 27-year-old man with Toxic /metabolic encephalopathy ?Seizure Substance abuse disorder Cannabinoid abuse U tox positive for cannaboids and Alcohol level 6 6/2 CT brain-negative EEG 6/2no evidence of seizures. Appreciate input from neurology, patient at this point does not need any antiepileptic drugs MRI brain 6/2 -disconjugate gaze at the time of the scan. No other abnormalities. Normal ammonia level He was seen by psychiatry Acute hypercapnic respiratory insufficiency-resolved s/p intubation/ extubation stable- continue to monitor. Hypotension, resolved Acute rhabdomyolysis continue with IV fluid. CK level pending this a.m. and continue to monitor Leukocytosis, resolved Hypoglycemia 6/2 in the ED the patient received 2 A of D50 Glucose monitoring q6 hours. Currently on d51/2 NS pending BMP this a.m. History of alcohol abuse Alcohol cessation counseling provided Continue LAITH cárdenas protocol Dislocated left glenohumeral joint Canine bite injury Follow-up with orthopedics, Dr. Vazquez in 1-2 weeks for reevaluation of left shoulder. Ok to come out of sling for gentle active ROM per orthopedics. Resume Amoxicillin-clavulanate today November 20, 2017 and discontinue IV Unasyn HAs been evaluated by hand surgery, -Dr. Joy Marcano, and cleared for discharge. Bacitracin is being applied. 6/2 in ED patient received tetanus toxoid. Appreciate input from wound care nurse Prophylaxis: GI Prophylaxis Famotidine DVT Prophylaxis -- SCDs, Lovenox 40 mg subcut daily Problem Qualifiers (1) Dog bite of arm: (2) Rhabdomyolysis: Keith Weiner MD Nov 20, 2017 11:14
[2017-11-20 12:00] VITALS: BP 109/56; PULSE 85; RESP 20; TEMP 98.1; O2SAT 98
--- NOTE | 2017-11-20 12:40 | PD.WCN.NOT ---
Wound Consult Description: Received consult from Doctor Wong for wound management of L elbow Communicated with: RN Jocelynn Lema and Doctor Weiner Recommendation: Please cleanse L elbow wounds with normal saline only and apply single layer Xeroform over wound beds and cover with dry 4x4 gauze, ABD pad, secured with rolled gauze, and Rob wrap. Change dressing daily or PRN if saturated or dislodged. Additional Information: Patient seen on for evaluation of wound management of L elbow. Patient was bitten by police canine on L elbow. Two police officers in room during wound assessment and dressing change. Removed dressing in place to L elbow to reveal multiple small wounds five linear wounds are noted with largest wound measures ~3cm x ~0.2cm x ~0.1cm. Wound beds present with ~80% pink tissue and ~ 20% yellow tissue. Periwound is unremarkable without induration,or erythema. L elbow presents with trace edema. Two small round wounds are also noted and with the largest measuring ~1cm x ~1cm x~0.1cm. Wound beds presents with ~50% pink tissue and ~50% yellow tissue. All wounds have scant sero-sanguinous drainage and are without odor. All wounds were cleansed with normal saline and patted dry. Xeroform gauze was then applied over open wounds only in a single layer and covered with dry 4x4 gauze, secured with ABD pad, rolled gauze and Rob wrap. Patient tolerated dressing change well. Torri Mora [facility] Nov 20, 2017 12:40
[2017-11-20] MEDS: AMOXICILLIN/CLAVULANATE K 875 MG TAB PO SCH ×2 (13:02→20:40)
--- NOTE | 2017-11-20 15:17 | HHI.PYPN ---
Subjective Remarks The patient has been seen today for psychiatric reevaluation. Case was discussed with Dr. Weiner, nurse in charge medical history [place]. On psychiatric evaluation today the patient reports feeling much better. He denies depressive symptoms. Denies anxiety. He denies suicidal and homicidal ideation. He denies visual and auditory hallucinations. He denies distress and pain. Oriented 3. No agitation or aggressive behavior reported. Review of Systems Except as stated in HPI: all other systems reviewed are Neg Mental Status Examination Appearance: Disheveled Consciousness: Alert Orientation: x4 Motor Activity: Normal gait Speech: Unremarkable Language: Adequate Fund of Knowledge: Adequate Attention and Concentration: Adequate Memory: Unremarkable Mood: Appropriate Affect: Appropriate Thought Process & Associations: Intact Thought Content: Appropriate Hallucination Type: None Delusion Type: None Suicidal Ideation: No Suicidal Plan: No Suicidal Intention: No Homicidal Ideation: No Homicidal Plan: No Homicidal Intention: No Insight: Fair Judgment: Impulsive Results Vitals/IOs Vital Signs Date Time Temp Pulse Resp B/P (MAP) Pulse Ox O2 Delivery O2 Flow Rate FiO2 11/20/17 13:12 100 Room Air 11/20/17 12:00 98.1 85 20 109/56 (73) 11/19/17 10:43 2.00 11/18/17 16:05 40 Intake and Output 11/20/17 11/20/17 11/21/17 08:00 16:00 00:00 Intake Total 540 ml Output Total 700 ml Balance -160 ml Assessment & Plan Problem List: (1) Unspecified psychosis ICD Codes: F29 - Unspecified psychosis not due to a substance or known physiological condition Assessment & Plan: Psychiatric evaluation today the patient presents with no concerning psychiatric symptoms. Logical, coherent and relevant. Oriented 3. Denies depression, denies anxiety, denies psychosis. No psychiatric intervention is needed. She is psychiatrically clear to go back to police custody. Assessment & Plan Estimated LOS: days Justification for Cont. Inpt. No psychiatric admission indicated. Mak Klein MD Nov 20, 2017 15:17
[2017-11-20 15:25] LABS: AUTOMATED NEUTROPHIL # 2.6 TH/MM3 (1.8-7.7); BASOPHIL % 0.5 % (0.0-2.0); EOSINOPHIL # 0.5 TH/MM3 (0-0.4); EOSINOPHIL % 9.3 % (0.0-4.0); HEMATOCRIT 38.7 % (39.0-51.0); HEMOGLOBIN 12.9 GM/DL (13.0-17.0); LYMPH % 28.9 % (9.0-44.0); LYMPHOCYTE # 1.5 TH/MM3 (1.0-4.8); MEAN CELL VOLUME 89.6 FL (80.0-100.0); MEAN CORPUSCULAR HEMOGLOBIN 29.9 PG (27.0-34.0); MEAN CORPUSCULAR HGB CONC 33.3 % (32.0-36.0); MEAN PLATELET VOLUME 8.5 FL (7.0-11.0); MONO % 9.4 % (0.0-8.0); MONOCYTE # 0.5 TH/MM3 (0-0.9); NEUT % 51.9 % (16.0-70.0); PLATELET COUNT 192 TH/MM3 (150-450); RED BLOOD COUNT 4.32 MIL/MM3 (4.50-5.90); WHITE BLOOD COUNT 5.1 TH/MM3 (4.0-11.0)
[2017-11-20 16:00] VITALS: BP 110/57; PULSE 89; RESP 20; TEMP 97.9; O2SAT 98
[2017-11-20 16:10] LABS: BICARBONATE 28.5 MEQ/L (21.0-32.0); CALCIUM 8.5 MG/DL (8.5-10.1); CREATININE 0.72 MG/DL (0.60-1.30)
[2017-11-20] MEDS: ENOXAPARIN SODIUM 40 MG/0.4 ML SYRINGE SQ SCH (18:27)
[2017-11-20 20:00] VITALS: BP 131/76; PULSE 83; RESP 16; TEMP 98.2; O2SAT 99
[2017-11-21] VITALS: BP 118/60; PULSE 80; RESP 17; TEMP 98; O2SAT 97
[2017-11-21] MEDS: RESP: ALBUTEROL 2.5 MG/IPRATROPIUM 0.5 MG NEB (SCH) INH ×2 (03:02→09:20)
[2017-11-21] MEDS: DEXT 5%-NACL 0.45% 1000 ML INJ 1,000 ML IV SCH ×2 (03:17→10:24)
[2017-11-21 04:00] VITALS: BP 119/66; PULSE 66; RESP 16; TEMP 97.7; O2SAT 95
[2017-11-21 08:00] VITALS: BP 111/57; PULSE 77; RESP 20; TEMP 98.4; O2SAT 100
[2017-11-21] MEDS: CHLORHEXIDINE 0.12% (ORAL KIT) 15 ML CUP MT SCH (08:00)
[2017-11-21] MEDS: DOCUSATE SODIUM 50 MG/SENNA 8.6 MG TAB PO SCH (08:53)
[2017-11-21] MEDS: AMOXICILLIN/CLAVULANATE K 875 MG TAB PO SCH (08:53)
[2017-11-21] MEDS: SODIUM CHLORIDE 0.9% FLUSH 10 ML FLUSH IV FLUSH SCH (08:56)
[2017-11-21 09:21] VITALS: O2SAT 98
--- NOTE | 2017-11-21 11:01 | HHI.PR ---
Subjective Remarks Follow-up rhabdomyolysis November 20, 2017-patient seen and examined, afebrile and no acute event overnight. Alert and oriented 3. No seizure episode. CK 1600 as of November 19, 2017. Patient was having his left upper arm wound dressing change. Correctional officers in the room. Case discussed this a.m. with psychiatry. Patient denies any withdrawal signs. November 21, 2017-patient seen and examined, complains of left arm pain otherwise afebrile and no acute event overnight. Objective Vitals Vital Signs Date Time Temp Pulse Resp B/P (MAP) Pulse Ox O2 Delivery O2 Flow Rate FiO2 11/21/17 09:21 98 21 11/21/17 08:00 98.4 77 20 111/57 (75) 100 11/21/17 04:00 97.7 66 16 119/66 (83) 95 11/21/17 03:57 Room Air 11/21/17 00:00 Room Air 11/21/17 00:00 98.0 80 17 118/60 (79) 97 11/20/17 20:00 98.2 83 16 131/76 (94) 99 11/20/17 20:00 Room Air 11/20/17 18:38 98 Room Air 11/20/17 16:00 97.9 89 20 110/57 (74) 98 11/20/17 13:12 100 Room Air 11/20/17 12:00 98.1 85 20 109/56 (73) 98 I/O 11/20/17 11/20/17 11/20/17 11/21/17 11/21/17 11/21/17 07:00 15:00 23:00 07:00 15:00 23:00 Intake Total 540 ml 240 ml 240 ml Output Total 700 ml 600 ml 1000 ml Balance -160 ml -360 ml -760 ml Intake Oral 440 ml 240 ml 240 ml IV Total 100 ml Output Urine Total 700 ml 600 ml 1000 ml # Bowel Movements 0 0 Result Diagram: 11/20/17 1512 11/20/17 1512 Imaging Last Impressions Chest X-Ray 11/17/17 5174 Signed Impressions: CONCLUSION: Lines and tubes which appear to be appropriate in position. Lungs are clear. Shoulder X-Ray 11/17/17 3619 Signed Impressions: CONCLUSION: Successful reduction of the previous seen left glenohumeral dislocation. Head CT 11/17/17 0238 Signed Impressions: CONCLUSION: Negative noncontrast head CT. Radius/Ulna X-Ray 11/17/17 0147 Signed Impressions: CONCLUSION: Soft tissue swelling with air in the soft tissues around the elbow and proximal forearm. Neck Magnetic Resonance Angiography 11/17/17 0000 Signed Impressions: CONCLUSION: 1. Normal exam Percent stenosis is calculated using the diameter of the stenotic region over t he diameter of the normal distal internal carotid artery Head Magnetic Resonance Angiography 11/17/17 0000 Signed Impressions: CONCLUSION: 1. Normal exam Elbow X-Ray 11/17/17 0000 Signed Impressions: CONCLUSION: Nonspecific soft tissue swelling. No bony abnormality or significant joint effu bertha demonstrated. Brain MRI 11/17/17 0000 Signed Impressions: CONCLUSION: 1. The orbits demonstrate disconjugate gaze. The exam is otherwise unremarkabl e. Objective Remarks GENERAL: NAD SKIN: Warm and dry.dressing over LUE wound HEAD: Normocephalic. EYES: No scleral icterus. No injection or drainage. NECK: Supple, trachea midline. No JVD or lymphadenopathy. CARDIOVASCULAR: Regular rate and rhythm without murmurs, gallops, or rubs. RESPIRATORY: Breath sounds equal bilaterally. No accessory muscle use. GASTROINTESTINAL: Abdomen soft, non-tender, nondistended. MUSCULOSKELETAL: No cyanosis, or edema. BACK: Nontender without obvious deformity. No CVA tenderness. Procedures None A/P Problem List: (1) Dislocation of left shoulder joint ICD Code: S43.005A - Unspecified dislocation of left shoulder joint, initial encounter Status: Resolved (2) Dog bite of arm ICD Code: S41.159A - Open bite of unspecified upper arm, initial encounter; W54.0XXA - Bitten by dog, initial encounter Status: Acute (3) Rhabdomyolysis ICD Code: M62.82 - Rhabdomyolysis Status: Acute (4) Acute encephalopathy ICD Code: G93.40 - Encephalopathy, unspecified Status: Resolved Assessment and Plan 27-year-old man with Toxic /metabolic encephalopathy-resolved ?Seizure Substance abuse disorder Cannabinoid abuse U tox positive for cannaboids and Alcohol level 6 6/2 CT brain-negative EEG 6/2no evidence of seizures. Appreciate input from neurology, patient at this point does not need any antiepileptic drugs MRI brain 6/2 -disconjugate gaze at the time of the scan. No other abnormalities. Normal ammonia level Appreciate input from psychiatry Acute hypercapnic respiratory insufficiency-resolved s/p intubation/ extubation stable- continue to monitor. Hypotension, resolved Acute rhabdomyolysis-improving continue with IV fluid. CK level pending this a.m. and continue to monitor Leukocytosis, resolved Hypoglycemia 6/2 in the ED the patient received 2 A of D50 Glucose monitoring q6 hours. Currently on d51/2 NS pending BMP this a.m. History of alcohol abuse Alcohol cessation counseling provided Continue LAITH cárdenas protocol Dislocated left glenohumeral joint Canine bite injury Follow-up with orthopedics, Dr. Vazquez in 1-2 weeks for reevaluation of left shoulder. Ok to come out of sling for gentle active ROM per orthopedics. Currently on Amoxicillin-clavulanate today November 20, 2017 and s/p IV Unasyn HAs been evaluated by hand surgery, -Dr. Joy Marcano, and cleared for discharge. Bacitracin is being applied. 6/2 in ED patient received tetanus toxoid. Appreciate input from wound care nurse Prophylaxis: GI Prophylaxis Famotidine DVT Prophylaxis -- SCDs, Lovenox 40 mg subcut daily Problem Qualifiers (1) Dog bite of arm: (2) Rhabdomyolysis: Keith Weiner MD Nov 21, 2017 11:01
[2017-11-21] MEDS ORDERED: VITA100T54 PO (11:04)
[2017-11-21] MEDS ORDERED: AMOX875T2 PO (11:04)
[2017-11-21] MEDS ORDERED: IBUP-232 PO (11:04)
--- NOTE | 2017-11-21 11:08 | HHI.DS ---
Discharge Summary Admission Date Nov 17, 2017 at 04:59 Discharge Date: Nov 21, 2017 Admitting Diagnosis New onset seizures/left shoulder dislocation (1) Dislocation of left shoulder joint ICD Code: S43.005A - Unspecified dislocation of left shoulder joint, initial encounter Status: Resolved (2) Dog bite of arm ICD Code: S41.159A - Open bite of unspecified upper arm, initial encounter; W54.0XXA - Bitten by dog, initial encounter Status: Acute (3) Rhabdomyolysis ICD Code: M62.82 - Rhabdomyolysis Status: Acute (4) Acute encephalopathy ICD Code: G93.40 - Encephalopathy, unspecified Status: Resolved Procedures None Brief History - From Admission 27-year-old male presents in police custody for medical clearance to go to snf. Patient was apprehended by police canine. Patient states that he has not had a tetanus shot in over 5 years. Pain is mild to moderate. Patient sustained a bite to the left forearm. No other injuries. In the emergency department he denied any injury to his head, neck or back. No chest or abdominal pain. While in the ED he suffered episode that looked like a seizure , after which he remains obtunded. CBC/BMP: 11/20/17 1512 11/20/17 1512 Significant Findings Laboratory Tests Test 11/19/17 06:35 11/20/17 15:12 11/21/17 09:24 Blood Urea Nitrogen 2 MG/DL (7-18) 5 MG/DL (7-18) Calcium Level 8.4 MG/DL (8.5-10.1) Total Creatine Kinase 1960 U/L (39-308) 996 U/L (39-308) Red Blood Count 4.32 MIL/MM3 (4.50-5.90) Hemoglobin 12.9 GM/DL (13.0-17.0) Hematocrit 38.7 % (39.0-51.0) Monocytes (%) (Auto) 9.4 % (0.0-8.0) Eosinophils (%) (Auto) 9.3 % (0.0-4.0) Eosinophils # (Auto) 0.5 TH/MM3 (0-0.4) Random Glucose 111 MG/DL (74-106) Imaging Last Impressions Chest X-Ray 11/17/17 1193 Signed Impressions: CONCLUSION: Lines and tubes which appear to be appropriate in position. Lungs are clear. Shoulder X-Ray 11/17/17 0581 Signed Impressions: CONCLUSION: Successful reduction of the previous seen left glenohumeral dislocation. Head CT 11/17/17 2302 Signed Impressions: CONCLUSION: Negative noncontrast head CT. Radius/Ulna X-Ray 11/17/17 0147 Signed Impressions: CONCLUSION: Soft tissue swelling with air in the soft tissues around the elbow and proximal forearm. Neck Magnetic Resonance Angiography 11/17/17 0000 Signed Impressions: CONCLUSION: 1. Normal exam Percent stenosis is calculated using the diameter of the stenotic region over t he diameter of the normal distal internal carotid artery Head Magnetic Resonance Angiography 11/17/17 0000 Signed Impressions: CONCLUSION: 1. Normal exam Elbow X-Ray 11/17/17 0000 Signed Impressions: CONCLUSION: Nonspecific soft tissue swelling. No bony abnormality or significant joint effu bertha demonstrated. Brain MRI 11/17/17 0000 Signed Impressions: CONCLUSION: 1. The orbits demonstrate disconjugate gaze. The exam is otherwise unremarkabl e. PE at Discharge GENERAL: NAD SKIN: Warm and dry.dressing over LUE wound HEAD: Normocephalic. EYES: No scleral icterus. No injection or drainage. NECK: Supple, trachea midline. No JVD or lymphadenopathy. CARDIOVASCULAR: Regular rate and rhythm without murmurs, gallops, or rubs. RESPIRATORY: Breath sounds equal bilaterally. No accessory muscle use. GASTROINTESTINAL: Abdomen soft, non-tender, nondistended. MUSCULOSKELETAL: No cyanosis, or edema. BACK: Nontender without obvious deformity. No CVA tenderness. Hospital Course While in hospital, patient was treated for Toxic /metabolic encephalopathy ?Seizure Substance abuse disorder Cannabinoid abuse U tox positive for cannaboids and Alcohol level 6 6/2 CT brain-negative EEG 6/2no evidence of seizures. Appreciate input from neurology, patient at this point does not need any antiepileptic drugs MRI brain 6/2 -disconjugate gaze at the time of the scan. No other abnormalities. Normal ammonia level Appreciate input from psychiatry Acute hypercapnic respiratory insufficiency-resolved s/p intubation/ extubation stable- continue to monitor. Hypotension, resolved Acute rhabdomyolysis-improving Improve IV fluid hydration Leukocytosis, resolved Hypoglycemia Resolved with 2 A of D50 and d51/2 NS History of alcohol abuse Alcohol cessation counseling provided Continue rally pack, CIWA protocol Dislocated left glenohumeral joint Canine bite injury Follow-up with orthopedics, Dr. Vazquez in 1-2 weeks for reevaluation of left shoulder. Ok to come out of sling for gentle active ROM per orthopedics. Treated with Amoxicillin-clavulanate today November 20, 2017 and s/p IV Unasyn HAs been evaluated by hand surgery, -Dr. Joy Marcano, and cleared for discharge. Bacitracin is being applied. /2 in ED patient received tetanus toxoid. Appreciate input from wound care nurse Prophylaxis: GI Prophylaxis Famotidine DVT Prophylaxis -- SCDs, Lovenox 40 mg subcut daily Pt Condition on Discharge: Good Discharge Disposition: Dis to [employer] Discharge Instructions DIET: Follow Instructions for: As Tolerated, No Restrictions Activities you can perform: Regular-No Restrictions Follow up Referrals: Orthopedics - 2 Weeks with Ravinder Mao MD PCP Follow-up - 1 Week New Medications: Thiamine (Vitamin B-1) 100 Mg Tab 100 MG PO DAILY for Nutritional Supplement, #30 TAB 0 Refills Amoxicillin-Clavulanate (Amoxicillin-Clavulanate) 875-125 mg Tab 875 MG PO Q12HR for Infection, #20 TAB not for use in CrCl <30 mL/minute Continued Medications: Ibuprofen (Ibuprofen) 600 Mg Tab 600 MG PO Q6H PRN for Pain/Inflammation, #40 TAB 0 Refills (This prescription has been renewed) Discontinued Medications: Amoxicillin-Clavulanate (Augmentin) 875-125 Mg Tab 1 TAB PO BID for Infection for 10 Days, #20 TAB 0 Refills Keith Weiner MD Nov 21, 2017 11:08
[2017-11-21 11:13] LABS: BICARBONATE 27.3 MEQ/L (21.0-32.0); CALCIUM 8.5 MG/DL (8.5-10.1); CREATININE 0.64 MG/DL (0.60-1.30)
== END 2017-11-21 15:06 | DRG 100 ==
LOC: NEPD 01:29 → NEDA 04:59 → HIMN 06:45 → N04A 11-19 12:16
PROVIDERS: ADMIT Hospitalist; ATTEND Hospitalist
PROC: 0RSKXZZ Reposition Left Shoulder Joint, External Approach (ICD-10-PCS; principal; 2017-11-17)
PROC: 03HY32Z Insertion of Monitoring Device into Upper Artery, Percutaneous Approach (ICD-10-PCS; 2017-11-17)
PROC: 5A1945Z Respiratory Ventilation, 24-96 Consecutive Hours (ICD-10-PCS; 2017-11-17)
PROC: 0BH17EZ Insertion of Endotracheal Airway into Trachea, Via Natural or Artificial Opening (ICD-10-PCS; 2017-11-17)
PROC: 0CJS8ZZ Inspection of Larynx, Via Natural or Artificial Opening Endoscopic (ICD-10-PCS; 2017-11-17)
DX: R56.9 Unspecified convulsions (principal); G92 Toxic encephalopathy; M62.82 Rhabdomyolysis; I95.9 Hypotension, unspecified; D72.829 Elevated white blood cell count, unspecified; S43.005A Unspecified dislocation of left shoulder joint, initial encounter; E16.2 Hypoglycemia, unspecified; F13.10 Sedative, hypnotic or anxiolytic abuse, uncomplicated; S51.852A Open bite of left forearm, initial encounter; R40.2430 Glasgow coma scale score 3-8, unspecified time; F94.0 Selective mutism; F10.10 Alcohol abuse, uncomplicated; F12.10 Cannabis abuse, uncomplicated; F29 Unspecified psychosis not due to a substance or known physiological condition; W54.0XXA Bitten by dog, initial encounter; Y90.0 Blood alcohol level of less than 20 mg/100 ml; Z72.0 Tobacco use
CPT/HCPCS: 23650; 31500; 36556; 70450; 70544; 70548; 70551; 71045; 73020; 73070; 73090; 80048; 80053; 80307; 82140; 82533; 82550; 82552; 82805; 82948; 84100; 84443; 85025; 87641; 90471; 90714; 93005; 94002; 94003; 94640; 94664; 95819; 96374; A9579; J0295; J0330; J1165; J1650; J1953; J2060; J2310; J2550; J3010; J7030; P9612